=== PATIENT | male | born 1960 | race Caucasian/White ===

== ENCOUNTER 2020-09-06 13:37 | Outpatient (REF) | payer OTHER, SELFPAY ==
[2020-09-06 14:37] LABS: MANUAL DIFF FLAG NO
[2020-09-06 14:43] LABS: Basophils Percent Auto 0.5 % (0-2); Eosinophils Absolute Auto 0.2 X10*3/uL (0.0-0.4); Eosinophils Percent Auto 2.6 % (0-4); Hematocrit 45.5 % (42-52); Hemoglobin 15.3 g/dl (14.0-18.0); Imm Gran Abs Auto 0.02 X10*3/uL (0.00-0.03); Imm Gran Pct Auto 0.3 % (0.0-0.4); Lymphocytes Absolute Auto 2.7 X10*3/uL (1.2-4.9); Lymphocytes Percent Auto 34.5 % (20-40); Mean Corpuscular HGB Conc 33.6 g/dl (31.0-36.0); Mean Corpuscular Hemoglobin 30.1 pg (27.0-33.0); Mean Corpuscular Volume 89.6 fL (80-98); Mean Platelet Volume 10.3 fL (9.4-12.4); Monocytes Percent Auto 11.9 % (2-11); Neutrophils Percent Auto 50.2 % (45-73); Platelet Count 220 X10*3/uL (160-400); Red Blood Count 5.08 X10*6/uL (4.60-5.80); Red Cell Distribution Width 12.2 % (11.0-16.0)
[2020-09-06 15:07] LABS: Anion Gap 12 (12-20); Blood Urea Nitrogen 16 mg/dL (9-16); Calcium 9.5 mg/dL (8.4-10.2); Carbon Dioxide 26 mmol/L (22-29); Chloride 107 mmol/L (96-108); Estimated Glomerular Filt Rate > 60; Glucose Fasting 128 mg/dL (60-99); Potassium 4.3 mmol/L (3.3-5.1); Sodium 141 mmol/L (135-145)
== END 2020-09-06 13:38 | disposition home or self-care (01) ==
LOC: HO.LAB 13:37
PROVIDERS: PCP Internal Medicine; Visit Provider Internal Medicine
DX: Z00.00 Encounter for general adult medical examination without abnormal findings (principal); K62.5 Hemorrhage of anus and rectum; R09.89 Other specified symptoms and signs involving the circulatory and respiratory systems; R07.2 Precordial pain; M79.661 Pain in right lower leg; M79.662 Pain in left lower leg
CPT/HCPCS: 80048; 85025; U0003; U0005

== ENCOUNTER → 2020-09-24 13:47 | Outpatient (BNVA) | payer OTHER, SELFPAY | PROVIDERS: PCP Internal Medicine; Referring Provider Internal Medicine; Visit Provider Surgery | DX: K64.4 Residual hemorrhoidal skin tags (principal); K64.8 Other hemorrhoids | CPT/HCPCS: 46600; 99202 ==

== ENCOUNTER 2021-01-28 11:18 | Outpatient (REF) | payer OTHER, SELFPAY | END 2021-01-28 11:19 | disposition home or self-care (01) | LOC: HO.LAB 11:18 | PROVIDERS: PCP Internal Medicine; Visit Provider Internal Medicine | DX: Z13.89 Encounter for screening for other disorder (principal) ==

== ENCOUNTER 2021-01-28 11:30 | Emergency (ER) | payer OTHER, SELFPAY ==
--- NOTE | 2021-01-28 | ECG_ITS ---
Test Reason : CHEST PAIN Blood Pressure : / mmHG Vent. Rate : 065 BPM Atrial Rate : 065 BPM P-R Int : 172 ms QRS Dur : 090 ms QT Int : 406 ms P-R-T Axes : 013 012 025 degrees QTc Int : 422 ms Normal sinus rhythm Normal ECG When compared with ECG of 22-AUG-2019 16:06, No significant change was found Referred By: Michael Travis Electronically Signed By:LIVIA DUNAWAY MD
[2021-01-28 11:33] VITALS: BP 140/74; PULSE 62; RESP 18; TEMP 36.6; O2SAT 99; BMI 31.5
--- NOTE | 2021-01-28 11:36 | ED_ITS ---
HPI - General Adult General Chief complaint: General Medical Stated complaint: Syncopal Episode Time Seen by Provider: 01/28/21 11:36 Source: patient Mode of arrival: ambulatory Limitations: no limitations History of Present Illness HPI narrative: chest pain and palpitations. Patient was at outpatient labs when he developed chest pain and palpitations. patient was here for outpatient CT and blood work. Patient states he gets pain with exertion. Patient had a stress test 2 years ago was not told he had any blockages. Onset (ago): minute(s) Radiation: non-radiation Severity: mild Pain Consistency: now resolved Exacerbating factors: none Associated symptoms: chest pain and other (palpitations) Related Data Previous Rx's Medication Instructions Recorded aspirin 81 mg tablet,delayed 81 mg PO DAILY #90 tab 01/20/20 release (Adult Low Dose Aspirin) ibuprofen 800 mg tablet 800 mg PO BID #60 tab 12/06/20 Allergies Allergy/AdvReac Type Severity Reaction Status Date / Time azithromycin Allergy Unknown rash Verified 01/18/21 11:37 ciprofloxacin [From CIPRO] Allergy Unknown BLISTERS Verified 01/18/21 11:37 penicillin G [PENICILLIN G] Allergy Unknown HIVES Verified 01/18/21 11:37 penicillin V Allergy Unknown anaphylaxis Verified 01/18/21 11:37 Review of Systems Constitutional: Constitutional: Reports no additional constitutional complaints Eyes: Eyes: Reports no additional eye complaints ENT: Denies dizziness Cardiovascular: Cardiovascular: Reports no additional cardiovascular complaints Respiratory: Respiratory: Reports as per HPI Gastrointestinal: Gastrointestinal: Reports no additional gastrointestinal complaints Musculoskeletal: Musculoskeletal: Reports no additional musculoskeletal complaints Integumentary/Breasts: Skin/Breast: Denies rash Neurologic: Reports system reviewed and no additional complaints, except as documented, Denies dizziness and Denies Sensory deficit (Neuro) Psychiatric: Psychiatric: Denies anxiety [facility] Past Medical History Medical History Chest pain Diverticulitis Internal and external bleeding hemorrhoids Pain in both lower legs TBI (traumatic brain injury) Surgical History No significant past surgical history Family History Family History Mother No problems noted. Father No problems noted. Brother No problems noted. Brother No problems noted. Brother No problems noted. Social History Social History Housing: Apartment Alcohol intake: current Alcohol intake frequency: a few times a week Patient Tobacco Use Status: Former Tobacco user Tobacco use type: Cigarette Second Hand Smoke Exposure: Yes Advance Directives: No Advance Directives Information Provided: No service: No Current occupational status: employed Physical Exam Vital Signs: Vital Signs: Last Vital Signs Temp 98 F 01/28/21 11:33 Pulse 62 01/28/21 11:33 Resp 18 01/28/21 11:33 BP 140/74 H 01/28/21 11:33 Pulse Ox 99 01/28/21 11:33 Body Mass Index 31.5 Const: General: healthy appearing Nutritional Appearance: average body habitus Orientation/consciousness: oriented to person and patient oriented x3 Limitations: no limitations HENMT: Head: Yes normal to inspection Ears: external ears normal General nose exam: Normal external nose present Mouth: Normal oral and palatal mucosa present and oropharynx normal Throat: Yes posterior oropharynx normal Eyes: General: appearance normal, both eyes and all related structures Neck: Other: supple Neck: Yes normal visual inspection Chest: Chest palpation & inspection: normal inspection of the chest Resp: Auscultation: clear to auscultation bilaterally Cardio: Jugular venous distension: no JVD Rate: regular rate Rhythm: regular rhythm Heart sounds: S1 normal heart sound present and S2 normal heart sound present GI: Inspection: Yes normal to inspection Palpation (GI): Soft to palpation, nontender and No hepatosplenomegaly present Auscultation: normal bowel sounds : General: Yes no CVA tenderness Back/Spine/Pelvis: Back: no CVA tenderness Skin: General skin exam: no rashes or lesions noted Neuro: General: oriented to person and patient oriented x3 Cranial nerves: Yes CN's II-XII intact bilaterally Motor exam (neuro): 5/5 motor strength present throughout Sensory Exam: No Sensory deficit (Neuro) Extrem: General: Yes normal to inspection Psych: Appearance: grossly normal Course Reevaluation(s) Reevaluation #1: EKG, troponin all negative, patients symptoms likely anxiety Time: 12:49 Medical Decision Making Lab Data Result diagrams: 01/28/21 11:47 01/28/21 11:47 Labs: Lab Results 1101/28/21 01/28/21 Range/Units 11:47 11:47 11:47 WBC 7.0 (4.8-10.8) X10*3/uL RBC 5.04 (4.60-5.80) X10*6/uL Hgb 15.1 (14.0-18.0) g/dl Hct 44.5 (42.0-52.0) % MCV 88.3 (80.0-98.0) fL MCH 30.0 (27.0-33.0) pg MCHC 33.9 (31.0-36.0) g/dl RDW 12.4 (11.0-16.0) % Plt Count 203 (160-400) X10*3/uL MPV 10.0 (9.4-12.4) fL Immature Gran % (Auto) 0.3 (0.0-0.4) % Neut % (Auto) 55.3 (45-73) % Lymph % (Auto) 30.2 (20-40) % [place] % (Auto) 11.1 H (2-11) % Eos % (Auto) 2.7 (0-4) % Baso % (Auto) 0.4 (0-2) % Lymph # (Auto) 2.1 (1.2-4.9) X10*3/uL [place] # (Auto) 0.8 (0.1-1.2) X10*3/uL Eos # (Auto) 0.2 (0.0-0.4) X10*3/uL Baso # (Auto) 0.0 (0.0-0.2) X10*3/uL Abs Immat Gran (auto) 0.02 (0.00-0.03) X10*3/uL Absolute Neuts (auto) 3.8 (2.0-8.3) x10*3/uL Absolute Nucleated RBC 0.000 (0.0-0.012) X10*3/uL Nucleated RBC % (auto) 0.0 (0.0-0.2) /100WBC Sodium 139 (135-145) mmol/L Potassium 4.1 (3.3-5.1) mmol/L Chloride 105 (96-108) mmol/L Carbon Dioxide 27 (22-29) mmol/L Anion Gap 11 L (12-20) BUN 16 (9-16) mg/dL Creatinine 0.89 (0.5-1.4) mg/dL Estim Creat Clear Calc 105.8 Estimated GFR > 60 Random Glucose 129 H (60-115) mg/dL Calcium 9.4 (8.4-10.2) mg/dL Total Bilirubin 0.5 (0.0-1.0) mg/dL Direct Bilirubin 0.2 (0.0-0.5) mg/dL AST 18 (5-37) U/L ALT 21 (0-40) U/L Alkaline Phosphatase 53 (39-117) U/L Troponin I High Sens < 3.5 (<3.5-35.0) ng/L Total Protein 6.4 L (6.5-8.0) g/dL Albumin 4.3 (3.5-5.0) g/dL Lipase 36 (8-78) U/L Discharge Plan Discharge Clinical Impression: Heart palpitations Patient Disposition: Home, Self-Care Instructions: Heart Palpitations (ED) Additional Instructions: patient may go for his outpatient studies Prescriptions: No Action aspirin [Adult Low Dose Aspirin] 81 mg tablet,delayed release (DR/EC) 81 mg PO DAILY Qty: 90 RF: 8 ibuprofen 800 mg tablet 800 mg PO BID Qty: 60 RF: 3 Referrals: Juan Copeland MD [Primary Care Provider] - 1 week
[2021-01-28 11:52] LABS: MANUAL DIFF FLAG NO
[2021-01-28 11:59] LABS: Basophils Percent Auto 0.4 % (0-2); Eosinophils Absolute Auto 0.2 X10*3/uL (0.0-0.4); Eosinophils Percent Auto 2.7 % (0-4); Hematocrit 44.5 % (42.0-52.0); Hemoglobin 15.1 g/dl (14.0-18.0); Imm Gran Abs Auto 0.02 X10*3/uL (0.00-0.03); Imm Gran Pct Auto 0.3 % (0.0-0.4); Lymphocytes Absolute Auto 2.1 X10*3/uL (1.2-4.9); Lymphocytes Percent Auto 30.2 % (20-40); Mean Corpuscular HGB Conc 33.9 g/dl (31.0-36.0); Mean Corpuscular Volume 88.3 fL (80.0-98.0); Monocytes Absolute Auto 0.8 X10*3/uL (0.1-1.2); Monocytes Percent Auto 11.1 % (2-11); Neutrophils Absolute Auto 3.8 x10*3/uL (2.0-8.3); Neutrophils Percent Auto 55.3 % (45-73); Platelet Count 203 X10*3/uL (160-400); Red Blood Count 5.04 X10*6/uL (4.60-5.80); Red Cell Distribution Width 12.4 % (11.0-16.0)
[2021-01-28 12:12] LABS: Alanine Aminotransferase 21 U/L (0-40); Albumin Level 4.3 g/dL (3.5-5.0); Alkaline Phosphatase 53 U/L (39-117); Anion Gap 11 (12-20); Aspartate Amino Transferase 18 U/L (5-37); Bilirubin Direct 0.2 mg/dL (0.0-0.5); Bilirubin Total 0.5 mg/dL (0.0-1.0); Blood Urea Nitrogen 16 mg/dL (9-16); Calcium 9.4 mg/dL (8.4-10.2); Carbon Dioxide 27 mmol/L (22-29); Chloride 105 mmol/L (96-108); Creatinine Clr Calc Pharmacy 105.8; Estimated Glomerular Filt Rate > 60; Glucose Random 129 mg/dL (60-115); Lipase 36 U/L (8-78); Potassium 4.1 mmol/L (3.3-5.1); Sodium 139 mmol/L (135-145); Total Protein 6.4 g/dL (6.5-8.0)
[2021-01-28 12:17] LABS: Troponin-I High Sensitivity < 3.5 ng/L (<3.5-35.0)
== END 2021-01-28 13:31 | disposition home or self-care (01) ==
PROVIDERS: Emergency Provider Emergency Medicine; PCP Internal Medicine
DX: R00.2 Palpitations (principal)
CPT/HCPCS: 36415; 80048; 80076; 83690; 84484; 85025; 93005; 99283

== ENCOUNTER 2021-02-18 08:59 | Outpatient (REF) | payer OTHER, SELFPAY ==
--- NOTE | ~2021-02-18 | CT_ITS ---
EXAMINATION: CT ABDOMEN AND PELVIS WITH CONTRAST CLINICAL INFORMATION: Abdominal pain COMPARISON: Abdominal ultrasound and MRI from 2015 TECHNIQUE: Multidetector volumetric images were obtained from the superior aspect of the liver through the pubic symphysis following administration 85 mL of Omnipaque 350 intravenous contrast. Sagittal and coronal reformatted images were obtained on the technologist's workstation. Oral contrast: Yes This CT examination was performed using dose optimization techniques as appropriate, variously including the following: *Automated exposure control *Adjustment of mA and/or kV according to patient size (this includes techniques or standardized protocols for targeted exams where dose is matched to indication/reason for exam; i.e. extremities or head) *Use of iterative reconstruction technique DLP: 498 mGy-cm FINDINGS: LUNG BASES: The visualized lung bases are unremarkable. LIVER, GALLBLADDER, AND BILIARY TREE: The liver is normal in size, shape, and attenuation. There is a 3 cm cyst in the right lobe of the liver that is stable. No other focal hepatic lesion or biliary ductal dilatation is present. The gallbladder is unremarkable with no evidence of radiopaque gallstones, gallbladder wall thickening, or obvious pericholecystic inflammatory changes. PANCREAS: Unremarkable. SPLEEN: Upper normal in size measuring 13 cm. ADRENAL GLANDS: Unremarkable. KIDNEYS AND URETERS: The kidneys are normal in size, shape, and attenuation. No hydronephrosis, hydroureter, or calculi seen. No perinephric stranding. BLADDER: Unremarkable. GASTROINTESTINAL TRACT: There is diverticulosis of the colon. No evidence of diverticulitis is seen. The small and large bowel are otherwise unremarkable. The appendix is unremarkable. ABDOMINAL WALL: There or umbilical and right inguinal hernias containing fat. LYMPH NODES: Normal. VASCULAR: Unremarkable. PELVIC VISCERA: Unremarkable. OSSEOUS STRUCTURES: Unremarkable. CT/CT abdomen pelvis w con IMPRESSION: Stable liver cysts. Diverticulosis of the colon. No evidence of diverticulitis. Umbilical and right inguinal hernias containing fat. Fleischner guidelines were followed.
[2021-02-18] MEDS: iohexoL 350 MG/ML 100 ML INFUS..BTL 85 ML IV (11:31)
== END 2021-02-18 09:00 | disposition home or self-care (01) ==
LOC: HO.CT 08:59
PROVIDERS: Visit Provider Internal Medicine
DX: R10.9 Unspecified abdominal pain (principal)
CPT/HCPCS: 74177; Q9967

== ENCOUNTER → 2021-03-14 15:02 | Outpatient (BNVA) | payer OTHER, SELFPAY | PROVIDERS: PCP Internal Medicine; Referring Provider Internal Medicine; Visit Provider Internal Medicine Cardiovascular Disease | DX: R00.2 Palpitations (principal) | CPT/HCPCS: 99202 ==

== ENCOUNTER → 2021-04-30 12:32 | Outpatient (REF) | payer OTHER, SELFPAY ==
--- NOTE | 2021-04-30 12:38 | CA_ITS ---
Transthoracic Echocardiogram Patient (Last, First, Middle): Shayne Killian, Gender: Male Date of : 1960 Age: 60 Procedure Date: 04/30/2021 Procedure Type: Transthoracic Echocardiogram Location: OP Height: 177.8 cm Weight: 104.33 kg BSA: 2.22 m2 Heart Rate: bpm BP: 125 / 76 mmHg Rehabilitation Manager: SHAYNE Referring MD: Temo Cardona MD Design Printer Balloon: Temo Cardona MD Symptoms: R00.2 - Palpitations Study Quality: Fair ECG Rhythm: Sinus Conclusions: - Normal left ventricular size, thickness, systolic function, and wall motion. The visually estimated ejection fraction is between 55-60%. Diastolic function is normal for age. - Normal right ventricular cavity size and systolic function. - There is mild dilatation of the ascending aorta measuring 4.10 cm. Findings Left Ventricle Normal left ventricular size, thickness, systolic function, and wall motion. The visually estimated ejection fraction is between 55-60%. Diastolic function is normal for age. Right Ventricle Normal right ventricular cavity size and systolic function. Atria Both atria are normal in size. Aortic Valve Normal aortic valve structure and function. There is no aortic valve stenosis. There is no aortic valve regurgitation. Mitral Valve Normal mitral valve structure and function. There is no mitral valve regurgitation. There is no mitral valve stenosis. Pulmonic Valve Normal pulmonic valve structure and function. There is trace pulmonic valve regurgitation. Tricuspid Valve Normal tricuspid valve structure and function. There is no tricuspid valve regurgitation. Tricuspid regurgitation envelope is inadequate for calculation of right ventricular systolic pressure. Normal right atrial pressure. Great Vessels There is mild dilatation of the ascending aorta measuring 4.10 cm. The visualized portions of the pulmonary artery and branches are normal. Venous The inferior vena cava is normal in size and collapses greater than 50% with inspiration. Pericardium/Pleural Normal pericardial structure. There is no evidence of pericardial effusion. Prior Study Comparison No significant change compared to prior study dated: 09/29/2019. Measurements 2D Linear Measurements IVSd: 0.94 0.6-0.9/0.6-1.0 cm LVIDd: 4.64 3.9-5.3/4.2-5.9 cm LVIDd Index: 2.09 2.4-3.2/2.2-3.1 cm/m2 LVIDs: 3.22 2.0-3.6 cm LVPWd: 0.93 0.7-1.1 cm Ao Root: 4.00 2.1-3.5 cm LA Diam: 3.60 2.7-3.8/3.0-4.0 cm LAIDs Index: 1.62 1.5-2.3 cm/m2 LV Mass: 182.77 67-162/88-224 g LV Mass Index: 82.33 43-95/49-115 g/m2 LVOT Diam: 2.70 3.0+(-)1.3 cm 2D Systolic Function EF 4C: 59.60 >55% EF 2C: 57.00 >55% EF BiP: 58.30 >55% Mitral Valve MV Pk E: 0.56 MV PK A: 0.50 MV Decel Time: 321.00 E/A: 1.10 E'Lateral: 13.80 E'Medial: 5.11 E/E' Med: 10.90 E/E' Lat: 4.00 PHT: 94.00 MVA PHT: 2.34 Decel [place]: 1.74 Aortic Valve AoV Pk Jad: 1.19 AoV Mn Jad: 0.86 AoV VTI: 0.22 AoV Pk Grad: 6.00 Aov Mn Grad: 3.00 JOSUE Cont.VTI: 4.21 LVOT LVOT Pk Jad: 0.83 LVOT Mn Jad: 0.53 LVOT VTI: 0.16 LVOT Pk Grad: 3.00 LVOT Mn Grad: 1.00 LVOT Diam: 2.70 LVOT Area: 5.73 Diastolic Function MV Pk E: 0.56 MV Pk A: 0.50 E/A: 1.10 E'Medial: 5.11 E/E' Med: 10.90 E' Laterial: 13.80 E/E' Lat: 4.00 Tricuspid Valve TR Pk Jad: 0.96 TR Pk Grad: 4.00 Great Vessels Aorta Ao Root-2D: 4.00 2.0-3.7 cm Ao Asc: 4.10 2.1-3.4 cm Pulmonary Valve PV Pk Jad: 0.86 Peak PV Grad: 3.00 Updated in Other Vendor System with Status of Final Temo Cardona MD electronically signed on 05/02/2021 11:56:33 AM with status of Final
--- NOTE | 2021-04-30 12:38 | HM_ITS ---
Conclusion: 1. Patient was monitored for total of 14 days and 1 hour 2. Baseline rhythm was normal sinus rhythm with average heart of 66 beats per minute 3. No significant pauses or bradycardia noted 4. Four episodes of nonsustained ventricular tachycardia noted longest at 5 beats 5. Twenty total episodes of supra ventricle tachycardia noted with longest episode of 21 beats with the fastest episode of 176 beats per minute 6. Total of 1244 PACs accounting for 0.09% of total beats accounting for rare PACs 7. No patient reported events MTDD
== END ==
LOC: HO.CARD 12:32
PROVIDERS: PCP Internal Medicine; Visit Provider Internal Medicine Cardiovascular Disease
DX: R00.2 Palpitations (principal)
CPT/HCPCS: 93246; 93306

== ENCOUNTER → 2021-06-11 14:48 | Outpatient (BNVA) | payer OTHER, SELFPAY | PROVIDERS: PCP Internal Medicine; Referring Provider Internal Medicine; Visit Provider Nurse Practitioner Family | DX: R00.2 Palpitations (principal); I47.2 Ventricular tachycardia; I47.1 Supraventricular tachycardia; R07.2 Precordial pain | CPT/HCPCS: 99212 ==

== ENCOUNTER → 2021-07-11 09:54 | Outpatient (REF) | payer OTHER, SELFPAY ==
--- NOTE | ~2021-07-11 | NM_ITS ---
Lexiscan Myocardial perfusion study Indication: Chest pain, assess for coronary disease and ischemia Technique: The patient was brought in for a Lexiscan perfusion study on 07/11/2021 and was injected 0.4 mg of Lexiscan intravenously. Within a minute of this injection 30 mCi of sestamibi was given intravenously. Images were obtained using the SPECT gamma camera interlaced with the gating device. Images were obtained in supine position. Resting perfusion study was performed on 07/22/2021. Patient was administered 30 mCi of sestamibi intravenously at rest. Images were then obtained in supine position. Total DLP 105mGy-cm. Images were processed with the software and compared side to side in short axis, horizontal long axis and vertical long axis views. Findings: Raw acquisition The stress perfusion study showed diminished tracer uptake along the inferior wall. With CT attenuation correction, there is improvement and hence suggestive of diaphragmatic attenuation artifact. The gated study shows normal LV systolic function with calculated LVEF of 66%. LV cavity is normal in size. The gated study shows normal wall thickening and contraction of segments. Resting study shows diminished tracer uptake along the inferior wall from the basal to mid portions and improving with CT attenuation correction. Gating at rest reveals normal wall motion with ejection fraction at 65%. The findings are consistent with reversible perfusion defect along the inferior wall but improving with CT attenuation correction and hence likely diaphragmatic attenuation artifact. NM/NM cardiolite stress test Impression: 1. Myocardial perfusion imaging study shows no definitive evidence of any ischemia or infarction. Likely normal perfusion. 2. Gated LVEF is 66% during stress and 65% during rest. 3. Transient ischemic dilatation not present. EKG component of the test reported separately.
--- NOTE | 2021-07-11 09:58 | CA_ITS ---
Acquisition Time: 2021-07-11 10:09:47 Total Exercise Time: 00:06:29 Test Indications: cp, svt, nsvt Medications: see chart Protocol: STEVE Max HR: 127 BPM 78% of Pred: 161 BPM Max BP: 146/080 mmHG Max Work Load: 7.7 METS Exercise stress test with exercise 6 min 29 sec of Steve protocol, achieving 64% MPHR with request to stop due to leg fatigue, with report of sharp 1/10 left chest discomfort in stage 2 which resolved prior to start of stage 3, with normotensive response to exercise, with nondiagnostic EKG for ischemia. Treadmill placed in recovery and slowed to 1 MPH for additional 3 min. Testing changed to pharmacological stress test with Lexiscan injection, with report of lightheadedness, without anginal symptoms, with accelerated junctional rhythm post Lexiscan injection for less than 1 min, with normotensive response to injection, with nondiagnostic EKG for ischemia. In recovery, he was treated with Aminophylline 75mg IVP to reverse Lexiscan. Nuclear images pending. Test reviewed with Dr Grossman. Referred By: Haley Mendoza Overread By: HALEY MENDOZA
== END ==
LOC: HO.CARD 09:54
PROVIDERS: PCP Internal Medicine; Visit Provider Nurse Practitioner Family
DX: R07.9 Chest pain, unspecified (principal); I47.1 Supraventricular tachycardia; I47.2 Ventricular tachycardia
CPT/HCPCS: 78452; 93017; A9500; J0280; J2785

== ENCOUNTER → 2021-11-06 13:52 | Outpatient (BNVA) | payer OTHER, SELFPAY | PROVIDERS: PCP Internal Medicine; Referring Provider Internal Medicine; Visit Provider Internal Medicine Cardiovascular Disease | DX: R07.2 Precordial pain (principal); R00.2 Palpitations | CPT/HCPCS: 99212 ==

== ENCOUNTER 2022-03-06 14:01 | Outpatient (REF) | payer OTHER, SELFPAY ==
--- NOTE | ~2022-03-06 | US_ITS ---
EXAMINATION: US EXTRACRANIAL CAROTID DUPLEX, BILATERAL CLINICAL INFORMATION: Transient ischemic attack COMPARISON: None TECHNIQUE: Real-time ultrasound and Doppler techniques (integrating B-mode 2-D vascular images, Doppler spectral analysis and color-flow Doppler imaging) were utilized to interrogate the extracranial carotid arteries, the vertebral arteries and proximal subclavian arteries bilaterally. The degree of stenosis is determined by criteria similar to NASCET. FINDINGS: Right Side: 1. There is minimal noncalcified atherosclerotic plaque seen in the bifurcation/proximal ICA region. 2. The common carotid artery PSV proximally is 98.2 cm/s and distally 75.8 cm/s. 3. The proximal internal carotid artery velocities are 58 cm/s systolic and 24.6 cm/s diastolic. 4. The proximal external carotid artery PSV is 131 cm/s. 5. The vertebral artery shows antegrade flow. 6. The subclavian artery waveforms are normal. Left Side: 1. There is mild noncalcified atherosclerotic plaque seen in the bifurcation/proximal ICA region. 2. The common carotid artery PSV proximally is 104 cm/s and distally 80.2 cm/s. 3. The proximal internal carotid artery velocities are 82.6 cm/s systolic and 32.9 cm/s diastolic. 4. The proximal external carotid artery PSV is 113 cm/s. 5. The vertebral artery shows antegrade flow. 6. The subclavian artery waveforms are normal. US/US carotid duplex BI IMPRESSION: 1. RIGHT: Minimal, non-hemodynamically significant stenosis of the proximal right internal carotid artery corresponding to a 0-49% stenosis by velocity criteria. 2. LEFT: Minimal, non-hemodynamically significant stenosis of the proximal left internal carotid artery corresponding to a 0-49% stenosis by velocity criteria.
== END 2022-03-06 14:02 | disposition home or self-care (01) ==
LOC: HO.US 14:01
PROVIDERS: Visit Provider Internal Medicine
DX: G45.9 Transient cerebral ischemic attack, unspecified (principal)
CPT/HCPCS: 93880

== ENCOUNTER 2022-04-29 14:39 | Outpatient (REF) | payer OTHER, SELFPAY ==
--- NOTE | ~2022-04-29 | CT_ITS ---
EXAMINATION: CT HEAD WITHOUT CONTRAST CLINICAL INFORMATION: Tremor. COMPARISON: None TECHNIQUE: Contiguous axial imaging was performed from the skull base to vertex without intravenous administration of contrast. This CT examination was performed using dose optimization techniques as appropriate, variously including the following: *Automated exposure control *Adjustment of mA and/or kV according to patient size (this includes techniques or standardized protocols for targeted exams where dose is matched to indication/reason for exam; i.e. extremities or head) *Use of iterative reconstruction technique DLP: 1050 mGy-cm FINDINGS: No intracranial hemorrhage. No mass effect or midline structure shift. No abnormal extra-axial fluid collection. Estrada-white matter interface is maintained. The ventricles, sulci, and cisterns appear unremarkable. There is prominence of the right inferior turbinate with debris present in the right nasal cavity. There is mucosal thickening seen within the lacrimal ducts. The visualized paranasal sinuses and mastoid air cells are unremarkable. There is a filling defect in the left transverse sinus likely representing arachnoid granulation. This is round and does not have the appearance of thrombus. CT/CT head/brain wo IV con IMPRESSION: No acute intracranial pathology.
== END 2022-04-29 14:40 | disposition home or self-care (01) ==
LOC: HO.CT 14:39
PROVIDERS: PCP Internal Medicine; Visit Provider Internal Medicine
DX: R25.1 Tremor, unspecified (principal)
CPT/HCPCS: 70450

== ENCOUNTER 2022-05-22 11:19 | Outpatient (REF) | payer OTHER, SELFPAY ==
[2022-05-22 11:41] LABS: MANUAL DIFF FLAG NO
[2022-05-22 12:16] LABS: Basophils Absolute Auto 0.1 X10*3/uL (0.0-0.2); Basophils Percent Auto 0.7 % (0-2); Eosinophils Absolute Auto 0.2 X10*3/uL (0.0-0.4); Eosinophils Percent Auto 2.3 % (0-4); Hematocrit 46.7 % (42.0-52.0); Imm Gran Abs Auto 0.02 X10*3/uL (0.00-0.03); Imm Gran Pct Auto 0.2 % (0.0-0.4); Lymphocytes Absolute Auto 2.3 X10*3/uL (1.2-4.9); Lymphocytes Percent Auto 27.5 % (20-40); Mean Corpuscular HGB Conc 34.3 g/dl (31.0-36.0); Mean Corpuscular Hemoglobin 30.2 pg (27.0-33.0); Mean Corpuscular Volume 88.1 fL (80.0-98.0); Mean Platelet Volume 10.1 fL (9.4-12.4); Monocytes Absolute Auto 0.9 X10*3/uL (0.1-1.2); Monocytes Percent Auto 10.8 % (2-11); Neutrophils Absolute Auto 4.8 x10*3/uL (2.0-8.3); Neutrophils Percent Auto 58.5 % (45-73); Platelet Count 232 X10*3/uL (160-400); Red Cell Distribution Width 12.4 % (11.0-16.0); White Blood Count 8.3 X10*3/uL (4.8-10.8)
[2022-05-22 12:59] LABS: Erythrocyte Sedimentation Rate 4 MM/HR (0-15)
[2022-05-22 15:18] LABS: Alanine Aminotransferase 19 U/L (0-40); Albumin Level 4.7 g/dL (3.5-5.0); Alkaline Phosphatase 63 U/L (39-117); Aspartate Amino Transferase 17 U/L (5-37); Bilirubin Direct < 0.2 mg/dL (0.0-0.5); Bilirubin Total 0.5 mg/dL (0.0-1.0); C Reactive Protein 0.12 mg/dL (< or = 0.50); Total Protein 6.7 g/dL (6.5-8.0)
[2022-05-27 16:48] LABS: Endomysial IgA Antibody Negative (Negative)
[2022-05-28 14:24] LABS: Immunoglobulin A 181 mg/dL (47-310)
[2022-05-29 13:28] LABS: Transglutaminase Ab IgG <1.0 U/mL; Transglutaminase IgA <1.0 U/mL
[2022-05-29 13:33] LABS: Gliadin Deamidated IgA Ab <1.0 U/mL; Gliadin Deamidated IgG Ab <1.0 U/mL
== END 2022-05-22 11:20 | disposition home or self-care (01) ==
LOC: HO.LAB 11:19
PROVIDERS: PCP Internal Medicine; Visit Provider Internal Medicine
DX: R00.2 Palpitations (principal); R07.2 Precordial pain; K62.5 Hemorrhage of anus and rectum; R19.7 Diarrhea, unspecified; F17.210 Nicotine dependence, cigarettes, uncomplicated; Z79.899 Other long term (current) drug therapy
CPT/HCPCS: 36415; 80076; 82784; 85025; 85652; 86140; 86231; 86258; 86364; 93005; 99212

== ENCOUNTER 2022-07-25 09:38 | Day surgery (SDC) | payer OTHER, SELFPAY ==
--- NOTE | 2022-07-24 14:09 | P.CONAN_ITS ---
Documented by User: Elena Martinez NP 07/24/22 14:18 HPI - Anesthesia Eval Consult details Narrative: 61yo M for Colonoscopy Stable at 05/2022 cardiac office visit [facility] Active Problems Active Problems: All Active Problems (Updated 07/24/22 @ 14:03 by Michelle Painting RN) Hospital discharge follow-up (Acute) Rectal Hemorrhage (Acute) Rectal Hemorrhage (Acute) Rectal bleeding (Acute) Arm pain (Acute) Obesity (Acute) Otitis media (Acute) Abdominal pain (Acute) Intermittent palpitations (Acute) Otitis externa (Acute) NSVT (nonsustained ventricular tachycardia) (Acute) SVT (supraventricular tachycardia) (Acute) Diarrhea (Acute) Otitis media (Acute) Physical exam (Acute) Tremors of nervous system (Acute) Internal and external bleeding hemorrhoids (Acute) Diverticulitis (Acute) Pain in both lower legs (Acute) Chest pain (Acute) Past Medical History Medical History (Updated 07/24/22 @ 14:03 by Michelel Painting RN) Anxiety Chest pain Depression Diverticulitis Internal and external bleeding hemorrhoids Pain in both lower legs PTSD (post-traumatic stress disorder) TBI (traumatic brain injury) Family History Family History Mother No problems noted. Father No problems noted. Brother No problems noted. Brother No problems noted. Brother No problems noted. Surgical History Surgical History (Updated 07/24/22 @ 14:03 by Michelle Painting RN) H/O colonoscopy No significant past surgical history Social History Social History Housing: Apartment Alcohol intake: current Alcohol intake frequency: holidays/special occasions only Patient Tobacco Use Status: Former Tobacco user Quit Date: 1978 Tobacco use type: Cigarette Years Smoked: 5 +/- e-Cigarette/Vaping Use: Never Used Second Hand Smoke Exposure: Yes Use of substances other than those prescribed or required for medical reasons: No Are you DNR?: No Advance Directives: No Advance Directives Information Provided: Yes service: No Current occupational status: employed Current occupational exposures/hazards: No Cognitive needs: No Hearing needs: No Vision needs: Yes Meds Allergies Allergy/AdvReac Type Severity Reaction Status Date / Time azithromycin Allergy Unknown rash Verified 05/22/22 15:25 ciprofloxacin [From CIPRO] Allergy Unknown BLISTERS Verified 05/22/22 15:25 penicillin G [PENICILLIN G] Allergy Unknown HIVES Verified 05/22/22 15:25 penicillin V Allergy Unknown anaphylaxis Verified 05/22/22 15:25 Home Medications Medication Instructions Recorded Confirmed Last Taken Type clindamycin HCl 300 mg capsule 300 mg PO TID 07/24/22 07/24/22 Unknown History metformin 500 mg PO DAILY 07/24/22 07/24/22 Unknown History Exam Exam Date and Time: July 24, 2022 1409 Narrative Narrative: EKG 05/2022 Sinus rhythm 66 beats per minute, normal axis, nonspecific ST changes, QTC 430 milliseconds. Per 05/2022 cardiology office visit He underwent echocardiography which showed normal LVEF without any wall motion abnormalities.? He had exercise stress test where he was able to exercise for 6 minutes 29 se conds achieving 7.7 metabolic equivalents.? He was changed to Lexiscan for some reason which did not show any definitive perfusion defect. He was referred for coronary CTA which showed mild plaque in the LAD and circumflex artery.? Airway Adult Head Mouth w/Numbe Teeth: 1. 2. Assessment and Plan Assessment Anesthesia Assessment: Chart Reviewed Documented by User: Effie Gauthier MD 07/25/22 10:53 [facility] Past Medical History Medical History (Updated 07/24/22 @ 14:03 by Michelle Painting RN) Anxiety Chest pain Depression Diverticulitis Internal and external bleeding hemorrhoids Pain in both lower legs PTSD (post-traumatic stress disorder) TBI (traumatic brain injury) Family History Family History Mother No problems noted. Father No problems noted. Brother No problems noted. Brother No problems noted. Brother No problems noted. Family history of problems with anesthesia: No Surgical History Surgical History (Updated 07/24/22 @ 14:03 by Michelle Painting RN) H/O colonoscopy No significant past surgical history History of Problems with Anesthesia: No Social History Social History Housing: Apartment Alcohol intake: current Alcohol intake frequency: holidays/special occasions only Patient Tobacco Use Status: Former Tobacco user Quit Date: 1978 Tobacco use type: Cigarette Years Smoked: 5 +/- e-Cigarette/Vaping Use: Never Used Second Hand Smoke Exposure: Yes Use of substances other than those prescribed or required for medical reasons: No Are you DNR?: No Advance Directives: No Advance Directives Information Provided: Yes service: No Current occupational status: employed Current occupational exposures/hazards: No Cognitive needs: No Hearing needs: No Vision needs: Yes Meds Allergies Allergy/AdvReac Type Severity Reaction Status Date / Time azithromycin Allergy Unknown rash Verified 05/22/22 15:25 ciprofloxacin [From CIPRO] Allergy Unknown BLISTERS Verified 05/22/22 15:25 penicillin G [PENICILLIN G] Allergy Unknown HIVES Verified 05/22/22 15:25 penicillin V Allergy Unknown anaphylaxis Verified 05/22/22 15:25 Home Medications Medication Instructions Recorded Confirmed Last Taken Type clindamycin HCl 300 mg capsule 300 mg PO TID 07/24/22 07/24/22 Unknown History metformin 500 mg PO DAILY 07/24/22 07/24/22 Unknown History Exam Airway Mallampati Class: I TM Dist: >3cm Neck ROM: Full Adult Head Mouth w/Numbe Teeth: 1. 2. Loose/Missing/Broken Teeth: Yes (2 brokenbut. tight) Heart: rr Lungs: cta Assessment and Plan Final Anesthetic Review Family History of Problems with Anesthesia: No History of Problems with Anesthesia: No NPO: Yes ASA Class: II Final Preanesthetic Review: No Changes in Pt Med Stat, Meds/Allgs Chart Reviewed, Consent Obtained/Reviewed and Anes Risks/Benef Reviewed Patient Risk: Low Procedure Risk: Low Anesthetic Plan Anesthetic Plan: MAC: Disposition: Standard PACU
--- OUTSIDE RECORDS SUMMARY | 2022-07-25 09:40 | XMS_ITS | Continuity of Care Document ---
Author Name Unknown Organization [facility] ter Address [address] [place] [id number]- Care Team Providers Care Cutter Gas Name Role Phone Sequeira Tiffany HENRY Primary Care Physician [place] [facility] [place] 04/09/22 - 04/10/[address] [address]- Discharge Disposition: A-D/C Walkout Attending Physician: Not on Staff, Attending MD Admitting Physician: Not on Staff, Admitting MD Referring Physician: Not on Staff, Referring MD Allergies, Adverse Reactions, Alerts Substance Reaction Severity Status amoxicillin Active Medications aspirin 81 mg oral delayed release tablet 81 mg, 1, tablet, By Mouth, Daily, Refills 0, Maintenance, 12/04/21 6:43:00 EDT, Partial fill upon patient request if the prescription is for a schedule II opioid drug. Start Date: 12/04/21 Status: Ordered atorvastatin 40 mg oral tablet 1 tablet = 40 mg, By Mouth, Daily, 0 Refills, Maintenance, 12/04/21 6:44:00 EDT, Partial fill upon patient request if the prescription is for a schedule II opioid drug. Start Date: 12/04/21 Status: Ordered Ibuprofen Refills 0, Maintenance, 12/04/21 6:43:00 EDT, Partial fill upon patient request if the prescriptionis for a schedule II opioid drug. Start Date: 12/04/21 Status: Ordered Multivitamin Daily, 0 Refills, Maintenance, 12/04/21 6:44:00 EDT, Partial fill upon patient request if the prescription is for a schedule II opioid drug. Start Date: 12/04/21 Status: Ordered Tylenol 325 mg oral tablet 650 mg, 2, tablet, By Mouth, Every 6 hours, Refills 0, Maintenance, 12/04/21 6:43:00 EDT, Partial fill upon patient request if the prescription is for a schedule II opioid drug. Start Date: 12/04/21 Status: Ordered Results Radiology Reports * Exam Date Time Procedure Performing Provider Status 04/09/22 7:16 PM Chest 2 Views Frontal and Lat Shayy mila Yvonne; Auth (Verified) Notes: (Chest 2 Views Frontal and Lat) Reason For Exam: Chest Pain;Other: RESULT: Chest 2 Views Frontal and Lat Chest 2 Views Frontal and Lat Hx of Present Illness: cleaning at house, felt dizzy then my legs started shaking, my whole body was shaking, my head was bobbing up down , awake alert during event, states this has happened before since TBI, also felt left eye numbness, lasted 30 min at 1500, took 81mg ASA; Reason: Other:; Chest Pain; Clinical Question(s): Other: COMPARISON: None. FINDINGS: LINES AND TUBES: None. LUNGS AND PLEURA: Clear lungs. Normal pulmonary vascularity. No pleural effusion. No pneumothorax. HEART, MEDIASTINUM AND VICENTE: Heart is normal in size. Normal mediastinal and hilar contour. BONES AND SOFT TISSUES: No acute abnormality. IMPRESSION: No acute abnormality. WSN: [id number] Ordering Physician: Shelley Calle Dictated By: Kal Humphrey MD Dictated Date/Time: 04/09/22 7:19 pm Reviewed By: Kal Humphrey MD Signed By: Kal Humphrey MD Signed Date/Time: 04/09/22 7:19 pm Transcribed By: JORDAN Transcribed Date/Time: 04/09/22 7:19 pm Vital Signs Most recent to oldest [Reference Range]: 1 2 3 Oxygen Saturation [94-100 %] 99 % (04/10/22 6:07 AM) 98 % (04/10/22 3:46 AM) 97 % (04/10/22 1:33 AM) Pulse Rate [55-90 bpm] 63 bpm (04/10/22 6:07 AM) 66 bpm (04/10/22 3:46 AM) 65 bpm (04/10/22 1:33 AM) Blood Pressure [90-138/55-84 mm Hg] 131/74mm Hg (04/10/22 6:07 AM) 126/69mm Hg (04/10/22 3:46 AM) 112/56mm Hg (04/10/22 1:33 AM) Respiratory Rate [16-30 br/min] 18 br/min (04/09/22 6:22 PM) Temperature [96.8-100.4 DegF] 98.5 DegF (04/10/22 6:07 AM) 98.6 DegF (04/10/22 3:46 AM) 98.3 DegF (04/10/22 1:33 AM) Mode of Delivery (Oxygen) Room air (04/10/22 6:07 AM) Room air (04/10/22 3:46 AM) Room air (04/10/22 1:33 AM) Blood pressure sites Arm, left (04/10/22 6:07 AM) Arm, left (04/10/22 3:46 AM) Arm, left (04/10/22 1:33 AM) Temperature Route Oral (04/10/22 6:07 AM) Oral (04/10/22 3:46 AM) Oral (04/10/22 1:33 AM) Social History Social History Type Response Sex Male EKG study * Event Display: ECG 12-Lead Authored Date: Please click on pdf link to open report * Event Display: ECG 12-Lead Authored Date: Ventricular Rate: 63 BPM Atrial Rate: 63 BPM P-R Interval: 188 ms QRS Duration: 94 ms Q-T Interval: 402 ms QTC Calculation(Bazett): 411 ms P [place]: 22 degrees R [place]: 1 degrees T [place]: 18 degrees Normal sinus rhythm Normal ECG No previous ECGs available Confirmed by HCUCHO WEI ([id number]) on 04/10/2022 9:00:04 AM [place]: CHUCHO WEI Note * Jodi , INA S: TRANSCZACHERY Humphrey MD, Kal Moran: VERIFY Event Display: Result: Authored Date: Chest 2 Views Frontal and Lat Hx of Present Illness: cleaning at house, felt dizzy then my legs started shaking, my whole body was shaking, my head was bobbing up down , awake alert during event, states this has happened before since TBI, also felt left eye numbness, lasted 30 min at 1500, took 81mg ASA; Reason: Other:; Chest Pain; Clinical Question(s): Other: COMPARISON: None. FINDINGS: LINES AND TUBES: None. LUNGS AND PLEURA: Clear lungs. Normal pulmonary vascularity. No pleural effusion. No pneumothorax. HEART, MEDIASTINUM AND VICENTE: Heart is normal in size. Normal mediastinal and hilar contour. BONES AND SOFT TISSUES: No acute abnormality. IMPRESSION: No acute abnormality. WSN: [id number] Ordering Physician: Shelley Calle Dictated By: Kal Humphrey MD Dictated Date/Time: 04/09/22 7:19 pm Reviewed By: Kal Humphrey MD Signed By: Kal Humphrey MD Signed Date/Time: 04/09/22 7:19 pm Transcribed By: JORDAN Transcribed Date/Time: 04/09/22 7:19 pm Patient Care team information Care Team Personnel Name: Tiffany Sequeira MD Position: [facility] Office Staff Member Role: PCP Address: Address: [address] [place] [id number]- Care Team Related Persons Name: JANEE MICHAUD Address: [address] [place] [address] Name: NAT MICHAUD Address: home [address] [place] [address]
[2022-07-25 10:00] VITALS: BMI 30.8
[2022-07-25 10:04] VITALS: BP 139/76; PULSE 63; RESP 20; TEMP 36.6; O2SAT 97
[2022-07-25] MEDS: Lactated Ringers 1,000 ML 100 ML IVCONT (10:07)
[2022-07-25 10:11] LABS: Glucose, Whole Blood 129 mg/dL (60-115)
[2022-07-25 11:15] VITALS: BP 124/84; PULSE 68; RESP 18; TEMP 36.3; O2SAT 95
--- NOTE | 2022-07-25 11:23 | PM.OP ---
Brief Operative Note Date of Service: 07/25/22 Pre-op diagnosis: Diarrhea, rectal bleeding, screening Post-op diagnosis: other (Diverticulosis, Internal hemorrhoids) Procedure: Colonoscopy to the cecum with biopsies Surgeon: Jamil Reddy Anesthesia: MAC Was an Retail Store Clerk used for this Procedure?: No Estimated blood loss (mL): 2.0 Pathology: other (A. Ascending colon B. Descending colon) Condition: stable Disposition: PACU
[2022-07-25 11:30] VITALS: BP 141/74; PULSE 59; RESP 14; TEMP 36.3; O2SAT 96
--- NOTE | 2022-07-25 13:26 | OP_ITS ---
DATE OF SERVICE: 07/25/2022 SURGEON: Jamil Reddy MD INDICATIONS: The patient presents for evaluation of intermittent diarrhea, hematochezia, and colorectal cancer screening. Full consent has been obtained from him for this, including risks of bleeding and perforation. PREOPERATIVE DIAGNOSIS: POSTOPERATIVE DIAGNOSIS: Diarrhea, hematochezia, and colorectal cancer screening, rule out microscopic colitis, diverticulosis, and internal hemorrhoids. PROCEDURE PERFORMED: Colonoscopy to the cecum with biopsies. ESTIMATED BLOOD LOSS: COMPLICATIONS: ANESTHESIA: Monitored anesthesia care. ASSISTANTS: SPECIMENS: PREOPERATIVE DIAGNOSES: Diarrhea, hematochezia, and colorectal cancer screening. DESCRIPTION OF PROCEDURE: The patient was placed in the left lateral decubitus position. The digital rectal exam revealed no abnormalities. The Olympus video pediatric colonoscope was entered into the rectum and advanced to the cecum with the assistance of abdominal wall pressure. Once in the cecum, I did identify cecal pouch with appendiceal orifice and a normal-appearing ileocecal valve. I did have to irrigate the cecum quite a bit to clear it so as to adequately visualize it. I was able to achieve good visualization of the cecum, which appeared normal. The scope was then slowly withdrawn assessing all mucosal surfaces carefully. Preparation throughout the colon was somewhat limited due to a fair amount of retained liquid stool, which was irrigated and suctioned away as best as possible but clearly could prevent visualization of small or even medium-size lesions. I did not visualize any sign of polyps, colitis, nor angiodysplasia. Random biopsies were obtained in the ascending and descending colon. There was a mild amount of sigmoid diverticulosis. In the rectum, scope was retroflexed visualizing internal hemorrhoids, but no other pathology. The rectal mucosa appeared normal. The scope was straightened and withdrawn from the patient. He tolerated the procedure well and was returned to the recovery area in stable condition. IMPRESSION: 1. Diverticulosis. 2. Internal hemorrhoids. PLAN: The results of the biopsies will be checked. He will continue to use Imodium on a p.r.n. basis for intermittent diarrhea. Recent laboratories including celiac disease labs were negative. Given the limited prep, I would recommend a repeat colonoscopy in 5 years for screening. He will otherwise see me on a p.r.n. basis. MD LIANNA Keith/TENZIN / [id number] LATISHA
== END 2022-07-25 12:30 | disposition home or self-care (01) ==
PROVIDERS: PCP Internal Medicine; Visit Provider Internal Medicine
PROC: 0DJD8ZZ Inspection of Lower Intestinal Tract, Via Natural or Artificial Opening Endoscopic (ICD-10-PCS; CPT 45378; principal; 2022-07-25 10:40)
DX: K62.5 Hemorrhage of anus and rectum (principal); R19.7 Diarrhea, unspecified; K57.30 Diverticulosis of large intestine without perforation or abscess without bleeding; K64.8 Other hemorrhoids; E11.9 Type 2 diabetes mellitus without complications; Z79.84 Long term (current) use of oral hypoglycemic drugs
CPT/HCPCS: 45380; 82947; 88305

== ENCOUNTER 2022-12-01 14:56 | Emergency (ER) | payer OTHER, SELFPAY ==
[2022-12-01 15:59] VITALS: BP 144/80; PULSE 68; RESP 18; TEMP 36.6; O2SAT 97; BMI 30.8
--- NOTE | 2022-12-01 15:59 | ED_ITS ---
HPI - General Adult General Chief complaint: General Medical Stated complaint: Shakiness/Diabetic issue? Time Seen by Provider: 12/01/22 16:03 Source: patient Mode of arrival: ambulatory Limitations: no limitations History of Present Illness HPI narrative: 62 yo male with history of HTN, HLD, DM, NSVT, SVT, palpitations who presents to the ER for evaluation of shakiness that started 1 hour ago. He was dropping pa perwork off across the stress when he became tremulous all over. Has happened in the past when glucose is either high or low. He felt like his glucose was high so he took a leoncio supplement which is what he has been taking to manage his glucose. No longer taking metformin. The shakiness lasted a couple of minutes and then subsided. No other symptoms including no diaphoresis, weakness, numbness, tingling, chest pain, SOB, chills, fever, N/V/D or abdominal pain. POC in triage 150 MD complaint: shakiness Onset (ago): minute(s) Severity: moderate Pain Consistency: now resolved Relieving factors: medication Exacerbating factors: none Associated symptoms: denies other symptoms Treatments prior to arrival: none Related Data Home Medications Medication Instructions Recorded Confirmed clindamycin HCl 300 mg capsule 300 mg PO TID 07/24/22 09/08/22 metformin 500 mg PO DAILY 07/24/22 09/08/22 Previous Rx's Medication Instructions Recorded ibuprofen 800 mg tablet 800 mg PO BID #60 tabs 09/30/21 aspirin 81 mg tablet,delayed 81 mg PO DAILY #90 tabs 11/06/21 release (Adult Aspirin Regimen) metoprolol succinate 25 mg 25 mg PO DAILY #30 tabs 11/06/21 tablet,extended release 24 hr (Toprol XL) atorvastatin 40 mg tablet 40 mg PO BEDTIME #90 tabs 05/22/22 diphenoxylate-atropine 2.5 1 tab PO QID PRN diarrhea #20 tabs 08/19/22 mg-0.025 mg tablet (Lomotil) Allergies Allergy/AdvReac Type Severity Reaction Status Date / Time azithromycin Allergy Unknown rash Verified 09/08/22 10:09 ciprofloxacin [From CIPRO] Allergy Unknown BLISTERS Verified 09/08/22 10:09 penicillin G [PENICILLIN G] Allergy Unknown HIVES Verified 09/08/22 10:09 penicillin V Allergy Unknown anaphylaxis Verified 09/08/22 10:09 Review of Systems Review of Systems: Yes all other systems are reviewed and are negative [facility] Past Medical History Medical History (Updated 12/01/22 @ 16:02 by SARI Guadalupe) Depression Anxiety PTSD (post-traumatic stress disorder) TBI (traumatic brain injury) Internal and external bleeding hemorrhoids Diverticulitis Pain in both lower legs Chest pain Surgical History (Updated 07/24/22 @ 14:03 by Michelle Painting RN) H/O colonoscopy No significant past surgical history Family History Family History Mother No problems noted. Father No problems noted. Brother No problems noted. Brother No problems noted. Brother No problems noted. Social History Social History Housing: Apartment Alcohol intake: current Alcohol intake frequency: holidays/special occasions only Patient Tobacco Use Status: Former Tobacco user Quit Date: 1978 Tobacco use type: Cigarette Years Smoked: 5 +/- e-Cigarette/Vaping Use: Never Used Second Hand Smoke Exposure: Yes Advance Directives: No Advance Directives Information Provided: No service: No Current occupational status: employed Current occupational exposures/hazards: No Cognitive needs: No Hearing needs: No Vision needs: Yes Physical Exam ED Vital Signs: Vital Signs - 24 hr 12/01/22 15:59 Temperature 97.9 F Pulse Rate 68 Respiratory Rate 18 Blood Pressure 144/80 H Pulse Oximetry 97 Oxygen Delivery Method Room Air BMI result Body Mass Index 30.8 Appearance: Alert. Oriented X3. No acute distress. Head: normocephalic, atraumatic. Eyes: Pupils equal, round and reactive to light. ENT: Pharynx normal. No tonsillar swelling or exudate. Neck: Normal inspection. Neck supple. CVS: Normal heart rate and rhythm. Pulses normal. Respiratory: No respiratory distress. Breath sounds normal. Abdomen: Soft and nontender. +BS x4 Skin: Skin warm and dry. Normal skin color. Normal skin turgor. No rashes. Extremities: No lower extremity edema. No joint swelling. Neuro/psych: Oriented X 3. No motor deficit. No sensory deficit. CN II-XII intact. Normal speech and cognition. Steady gait Course Course Course Narrative: . Medical Decision Making Medical Decision Making [facility] Narrative: 62 yo male with history of HTN, HLD, DM, NSVT, SVT, palpitations who presents to the ER for evaluation of shakiness that started 1 hour ago. Has happened in the past when glucose is either high or low. POC in triage 150. He is asymptomatic and feels well. PE is unremarkable. Differential Diagnosis Differential Diagnoses: The differential diagnosis associated with the presentation includes hypoglycemia, hyperglycemia, anxiety, dehydration, electrolyte abnormality, focal seizure External Record Review External record reviewed: Outpatient record, Prior outpatient labs and Prior outpatient radiology Tests considered The following testing was considered but not selected: considered basic labs Chronic Conditions Patient?s care impacted by: Diabetes and Hypertension Critical Care Time Critical Care Time Critical Care Time: No Discharge Plan Discharge Clinical Impression: Shakiness Patient Disposition: Home, Self-Care Instructions: Tremors (ED) Additional Instructions: Your glucose was 150 today. Follow up with your doctor Continue to monitor your glucose levels at home If you develop new or worsening symptoms call 911 or come back to the ER for further evaluation. Prescriptions: No Action ibuprofen 800 mg tablet 800 mg PO BID Qty: 60 3RF diphenoxylate-atropine [Lomotil] 2.5-0.025 mg tablet 1 tab PO QID PRN (Reason: diarrhea) Qty: 20 0RF clindamycin HCl 300 mg capsule 300 mg PO TID metformin 500 mg PO DAILY metoprolol succinate [Toprol XL] 25 mg tablet extended release 24 hr 25 mg PO DAILY Qty: 30 3RF aspirin [Adult Aspirin Regimen] 81 mg tablet,delayed release (DR/EC) 81 mg PO DAILY Qty: 90 3RF atorvastatin 40 mg tablet 40 mg PO BEDTIME Qty: 90 3RF Interventions: ED Discharge Assessment Last Done: 12/01/22 16:07 Discharge Date/Time: 12/01/22 16:15
[2022-12-02 07:18] LABS: Glucose, Whole Blood 150 mg/dL (60-115)
== END 2022-12-01 16:15 | disposition home or self-care (01) ==
LOC: HO.ED 16:10
PROVIDERS: Emergency Provider Emergency Medicine; PCP Internal Medicine
DX: R25.1 Tremor, unspecified (principal); Z87.891 Personal history of nicotine dependence; Z79.899 Other long term (current) drug therapy
CPT/HCPCS: 82947; 99282

== ENCOUNTER 2022-12-09 11:17 | Outpatient (AMB) | payer OTHER, SELFPAY ==
[2022-12-09 11:18] VITALS: BP 132/74; PULSE 65; O2SAT 97; BMI 31.9
--- NOTE | 2022-12-09 11:18 | A.OFFPC_ITS ---
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 Accompanied by: Self / Same As Patient Allergies azithromycin Allergy (Unknown, Verified 12/09/22 11:19) rash ciprofloxacin [From CIPRO] Allergy (Unknown, Verified 12/09/22 11:19) BLISTERS penicillin G [PENICILLIN G] Allergy (Unknown, Verified 12/09/22 11:19) HIVES penicillin V Allergy (Unknown, Verified 12/09/22 11:19) anaphylaxis Medication List - Last Reconciled 12/10/22 by Juan Copeland MD aspirin (Adult Aspirin Regimen) 81 mg PO DAILY atorvastatin 40 mg PO BEDTIME clindamycin HCl 300 mg PO TID diphenoxylate-atropine 2.5-0.025 mg (Lomotil) 1 tab PO QID PRN ibuprofen 800 mg PO BID [metformin 500 mg PO DAILY] metoprolol succinate ER (Toprol XL) 25 mg PO DAILY Tobacco use date assessed: 09/08/22 Dental Screening Dental Screen Date: 12/09/22 Did you have a dental visit in the last 12 months?: No Did you have a dental problem in the last 6 months where you did not have access to dental care?: No Was dental information given to patient?: Patient has dentist HPI 3mth f/u HPI Details DM HTN and hyperlipidemia; stable on rx; dietary indiscretion PFSH Medical History Depression Anxiety PTSD (post-traumatic stress disorder) TBI (traumatic brain injury) Internal and external bleeding hemorrhoids Diverticulitis Pain in both lower legs Chest pain Surgical History H/O colonoscopy No significant past surgical history Family History Mother No problems noted. Father No problems noted. Brother No problems noted. Brother No problems noted. Brother No problems noted. Social History Housing: Apartment Alcohol intake: current Alcohol intake frequency: holidays/special occasions only Patient Tobacco Use Status: Former Tobacco user Quit Date: 1978 Tobacco use type: Cigarette Years Smoked: 5 +/- e-Cigarette/Vaping Use: Never Used Second Hand Smoke Exposure: Yes service: No Current occupational status: employed Current occupational exposures/hazards: No Cognitive needs: No Hearing needs: No Vision needs: Yes Questionnaire PHQ-9 Over the last 2 weeks, how often have you been bothered by any of the following problems? 1. Little interest or pleasure in doing things: not at all 2. Feeling down, depressed, or hopeless: not at all 3. Trouble falling or staying asleep, or sleeping too much: not at all 4. Feeling tired or having little energy: not at all 5. Poor appetite or overeating: not at all 6. Feeling bad about yourself - or that you are a failure or have let yourself or your family down: not at all 7. Trouble concentrating on things, such as reading the newspaper or watching television: not at all 8. Moving or speaking so slowly that other people could have noticed. Or the opp osite - being so fidgety or restless that you have been moving around a lot more than usual: not at all 9. Thoughts that you would be better off or of hurting yourself in some way: not at all Total score: 0 Depression Screening Interpretation: Negative 19236 - PHQ-9 Billing: Yes Source: Developed by Drs. Jamil Alatorre, Zoey Redding, Jesse Taylor and colleagues, with an educational shelby from [employer]. Thrive Questionnaire Date Thrive assessed: 04/18/22 AUDIT C Alcohol Use Questionnaire (AUDIT-C) 1. How often do you have a drink containing alcohol?: Never Total Score: 0 Score Reviewed/Action Taken: Yes SUNITA-7 AMB Questionnaire SUNITA-7 Date SUNITA - 7 assessed: 04/18/22 Source: Developed by Drs. Jamil Alatorre, Zoey Redding, Jesse Taylor and colleagues, with an educational shelby from [employer]. Review of Systems Const Denies chills, Denies headache(s) and Denies weight loss ENT Denies headache(s) Card Denies chest pain, Denies syncope, Denies irregular heart rhythm and Denies dyspnea Resp Denies chest congestion, Denies cough and Denies dyspnea GI Denies abdominal pain, Denies change in stool character, Denies nausea and Denies vomiting Musc Denies deformity and Denies joint swelling Neuro Denies syncope and Denies headache(s) Physical exam (Primary Care) Vital Signs: Last Vital Signs Pulse 65 12/09/22 11:18 BP 132/74 12/09/22 11:18 Pulse Ox 97 12/09/22 11:18 Oxygen Delivery Method Room Air 12/09/22 11:18 BMI result Body Mass Index 31.9 Tobacco/Smoking Status: Tobacco use Status Tobacco use date assessed 09/08/22 12/09/22 11:23 Patient Tobacco Use Status Former Tobacco user 12/09/22 11:23 Tobacco use type Cigarette 12/09/22 11:23 e-Cigarette/Vaping Use Never Used 12/09/22 11:23 PHQ-9: PHQ-9 Score PHQ-9: Total score 0 12/10/22 10:27 Depression Screening Interpretation: Negative Thrive Assessment: Date of Thrive Assessment Date Thrive assessed 04/18/22 12/09/22 11:23 Const General: cooperative, comfortable, no acute distress and alert Neck Neck: Yes no lymphadenopathy Thyroid: Thyroid normal Resp Effort & Inspection: normal respiratory effort Auscultation: clear to auscultation bilaterally Percussion: percussion normal Cardio Jugular venous distension: no JVD Palpation: normal PMI Rate: regular rate Rhythm: regular rhythm Heart sounds: S1 normal heart sound present and S2 normal heart sound present GI Inspection: Yes normal to inspection Palpation (GI): No hepatosplenomegaly present Skin General skin exam: no rashes or lesions noted Extrem General: Yes no clubbing, cyanosis or edema Assessment and Plan Assessment & Plan (1) Hypertension: Code(s): I10 - Essential (primary) hypertension Plan: stable; same rx (2) Hyperlipidemia: Code(s): E78.5 - Hyperlipidemia, unspecified Plan: stable; same rx (3) Diabetes mellitus with coincident hypertension: Code(s): E11.9 - Type 2 diabetes mellitus without complications; I10 - Essential ( primary) hypertension Plan: improve diet Orders: Orders Hemoglobin A1c Today R73.9 - Hyperglycemia, unspecified Coding Level of Care Code Est Pt Level 4 (03454) Diagnoses Hypertension I10 Hyperlipidemia E78.5 Diabetes mellitus with coincident hypertension E11.9; I10
== END 2022-12-09 11:31 | disposition home or self-care (01) ==
PROVIDERS: PCP Internal Medicine; Visit Provider Internal Medicine
DX: I10 Essential (primary) hypertension (principal); E78.5 Hyperlipidemia, unspecified; E11.9 Type 2 diabetes mellitus without complications
CPT/HCPCS: 99214

== ENCOUNTER 2022-12-09 11:41 | Outpatient (REF) | payer OTHER, SELFPAY ==
[2022-12-09 11:56] LABS: MANUAL DIFF FLAG NO
[2022-12-09 12:57] LABS: Basophils Absolute Auto 0.1 X10*3/uL (0.0-0.2); Basophils Percent Auto 0.7 % (0-2); Eosinophils Absolute Auto 0.2 X10*3/uL (0.0-0.4); Eosinophils Percent Auto 2.3 % (0-4); Hematocrit 46.9 % (42.0-52.0); Hemoglobin 15.7 g/dl (14.0-18.0); Imm Gran Abs Auto 0.03 X10*3/uL (0.00-0.03); Imm Gran Pct Auto 0.4 % (0.0-0.4); Lymphocytes Absolute Auto 1.7 X10*3/uL (1.2-4.9); Lymphocytes Percent Auto 24.9 % (20-40); Mean Corpuscular HGB Conc 33.5 g/dl (31.0-36.0); Mean Corpuscular Hemoglobin 29.8 pg (27.0-33.0); Mean Platelet Volume 10.2 fL (9.4-12.4); Monocytes Absolute Auto 0.7 X10*3/uL (0.1-1.2); Monocytes Percent Auto 10.1 % (2-11); Neutrophils Absolute Auto 4.2 x10*3/uL (2.0-8.3); Neutrophils Percent Auto 61.6 % (45-73); Platelet Count 225 X10*3/uL (160-400); Red Blood Count 5.27 X10*6/uL (4.60-5.80); Red Cell Distribution Width 12.3 % (11.0-16.0); White Blood Count 6.9 X10*3/uL (4.8-10.8)
[2022-12-09 13:14] LABS: Estimated Average Glucose 154 mg/dL
[2022-12-09 14:03] LABS: Alanine Aminotransferase 14 U/L (0-40); Albumin Level 4.6 g/dL (3.5-5.0); Alkaline Phosphatase 57 U/L (39-117); Anion Gap 13 (12-20); Aspartate Amino Transferase 15 U/L (5-37); Bilirubin Total 0.4 mg/dL (0.0-1.0); Blood Urea Nitrogen 17 mg/dL (9-16); Calcium 9.5 mg/dL (8.4-10.2); Carbon Dioxide 27 mmol/L (22-29); Chloride 104 mmol/L (96-108); Cholesterol 206 mg/dL (<200); Estimated Glomerular Filt Rate > 60; Glucose Fasting 184 mg/dL (60-99); HDL Cholesterol 40 mg/dL (>40); LDL Cholesterol Calculated 140 mg/dL (<100); Sodium 140 mmol/L (135-145); Total Protein 7.1 g/dL (6.5-8.0); Triglycerides 130 mg/dL (<150)
[2022-12-09 14:18] LABS: Prostate Specific Antigen Scr 0.64 ng/mL (<0.05-4.0); Thyroid Stimulating Hormone 1.24 uIU/mL (0.32-4.0)
== END 2022-12-09 11:42 | disposition home or self-care (01) ==
LOC: HO.LAB 11:41
PROVIDERS: PCP Internal Medicine; Visit Provider Internal Medicine
DX: Z00.00 Encounter for general adult medical examination without abnormal findings (principal); Z12.5 Encounter for screening for malignant neoplasm of prostate; R73.9 Hyperglycemia, unspecified; E78.5 Hyperlipidemia, unspecified; D64.9 Anemia, unspecified; N28.9 Disorder of kidney and ureter, unspecified; E03.9 Hypothyroidism, unspecified
CPT/HCPCS: 36415; 80053; 80061; 83036; 84153; 84443; 85025

== ENCOUNTER 2023-01-19 15:05 | Outpatient (AMB) | payer OTHER, SELFPAY ==
--- NOTE | 2023-01-19 15:07 | MHC.OFFVIS ---
Intake Vital Signs 01/19/23 15:09 Height 5 ft 10 in Weight 222 lb 6 oz BMI 31.9 BP 122/76 Blood Pressure Location Rt brachial Position Sitting Respiration 16 Pulse 72 Pulse Source Pulse Oximeter Pulse Oximetry (%) 97 Oxygen Delivery Method Room Air Intake Visit Reasons: NPV - Tremors/Lvm Intake Note: Pt presents to the office for follow up for tremors. 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 Allergies azithromycin Allergy (Unknown, Verified 01/19/23 15:09) rash ciprofloxacin [From CIPRO] Allergy (Unknown, Verified 01/19/23 15:09) BLISTERS penicillin G [PENICILLIN G] Allergy (Unknown, Verified 01/19/23 15:09) HIVES penicillin V Allergy (Unknown, Verified 01/19/23 15:09) anaphylaxis Medication List - Last Reconciled 01/19/23 by Swathi Louis MD aspirin 81 mg PO DAILY atorvastatin 40 mg PO BEDTIME ibuprofen 800 mg PO BID [metformin 500 mg PO DAILY] metoprolol succinate ER (Toprol XL) 25 mg PO DAILY HPI HPI Comments History of Present Illness Details 62y/o male comes for evaluation of tremors. He reports he has whole body tremors intermittently usually when his diabetes is not well controlled.He started noticing about 1 year ago. The tremors are mostly with action and posture. Low blood sugar and stress makes it worse. The tremors can last 5-10 minutes. He says if he takes powdered leoncio it helps his tremors. He reports 3-5 episodes of tremors. He is fully awake during these episodes. He denies falls.He denies palpitations during the episodes.He was diagnosed with diabetes in 2016 . He sees a physician at [facility] for his diabetes. No family h/o tremors [facility], [facility] Medical History (Updated 01/19/23 @ 15:40 by Swathi Louis MD) Occasional tremors Depression Anxiety PTSD (post-traumatic stress disorder) TBI (traumatic brain injury) Internal and external bleeding hemorrhoids Diverticulitis Pain in both lower legs Chest pain Surgical History H/O colonoscopy No significant past surgical history Family History Mother No problems noted. Father No problems noted. Brother No problems noted. Brother No problems noted. Brother No problems noted. Social History Housing: Apartment Alcohol intake: current Alcohol intake frequency: holidays/special occasions only Patient Tobacco Use Status: Former Tobacco user Quit Date: 1978 Tobacco use type: Cigarette Years Smoked: 5 +/- e-Cigarette/Vaping Use: Never Used Second Hand Smoke Exposure: Yes service: No Current occupational status: employed Current occupational exposures/hazards: No Cognitive needs: No Hearing needs: No Vision needs: Yes Review of Systems Const Denies chills, Denies headache(s) and Denies weight loss ENT Denies headache(s) Card Denies chest pain, Denies syncope, Denies irregular heart rhythm and Denies dyspnea Resp Denies chest congestion, Denies cough and Denies dyspnea GI Denies abdominal pain, Denies change in stool character, Denies nausea and Denies vomiting Musc Denies deformity and Denies joint swelling Neuro Denies syncope and Denies headache(s) Physical Exam Vital Signs: Last Vital Signs Pulse 72 01/19/23 15:09 Resp 16 01/19/23 15:09 BP 122/76 01/19/23 15:09 Pulse Ox 97 01/19/23 15:09 Oxygen Delivery Method Room Air 01/19/23 15:09 BMI result Body Mass Index 31.9 Const General: cooperative, healthy appearing and comfortable Nutritional Appearance: overweight Orientation/consciousness: patient oriented x3 Eyes Pupils: Equal, round and reactive pupils present Neuro Other: Mild head tremors - eliminated when the patient ate a [place] chocolate bar. General: patient oriented x3, tone normal, moves all extremities and no focal motor deficits Cranial nerves: Yes Equal, round and reactive pupils present, Yes Bilaterally intact EOM present, Yes Nystagmus not present, Yes Normal facial strength present and Yes Midline tongue present Cognition (Neuro): normal cognition Gait exam (Neuro): Antalgic gait present Motor exam (neuro): 5/5 motor strength present throughout and Normal motor muscle tone present throughout Deep tendon reflexes (DTR's): Right triceps reflex intensity grade: 1+, Left triceps reflex intensity grade: 0, Rt Biceps (C5, C6): 0, Left biceps reflex intensity grade: 1+, Right brachioradialis reflex intensity grade: 1+, Left brachioradialis reflex intensity grade: 1+, Right patellar reflex intensity grade: 1+ and Left patellar reflex intensity grade: 1+ Coordination: [id number] test normal Assessment & Plan Assessment & Plan (1) Occasional tremors: Comment: ? secondary to hypoglycemia ? 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
[2023-01-19 15:09] VITALS: BP 122/76; PULSE 72; RESP 16; O2SAT 97; BMI 31.9
== END 2023-01-19 15:44 | disposition home or self-care (01) ==
PROVIDERS: PCP Internal Medicine; Visit Provider Psychiatry & Neurology Neurology
DX: R25.1 Tremor, unspecified (principal)
CPT/HCPCS: 99204

== ENCOUNTER → 2023-01-19 15:05 | Outpatient (BNVA) | payer OTHER, SELFPAY | PROVIDERS: PCP Internal Medicine; Visit Provider Psychiatry & Neurology Neurology | DX: R25.1 Tremor, unspecified (principal) | CPT/HCPCS: 99202 ==

== ENCOUNTER 2023-03-30 13:59 | Outpatient (AMB) | payer OTHER, SELFPAY ==
--- NOTE | 2023-03-30 14:01 | A.OFFVIS_ITS ---
Intake Vital Signs 03/30/23 14:02 Height 5 ft 10 in Weight 225 lb 4.999 oz BMI 32.3 BP 110/60 Blood Pressure Location Lt brachial Position Sitting Pulse 84 Pulse Source Pulse Oximeter Intake Visit Reasons: 6 mth f/up Intake Note: 6 mnth f/up pt its feeling its feeling fine not having any symptoms today but have them opnce in a while. 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 He is complaining for exertional chest discomfort. He underwent echocardiography which showed normal LVEF without any wall motion abnormalities. He had exercise stress test where he was able to exercise for 6 minutes 29 seconds achieving 7.7 metabolic equivalents. He was changed to Lexiscan for some reason which did not show any definitive perfusion defect. He was referred for coronary CTA which showed mild plaque in the LAD and circumflex artery. He was started on atorvastatin. 03/30/2023: He returns for follow-up. He has not been taking his atorvastatin for few months. He had lab work in November when LDL was 140. Difficult to say whether he was taking medications at that time or not. I have advised him to restart atorvastatin and I am putting him on atorvastatin 80 mg once a day. He is complaining of left-sided facial numbness off and on along with drooping of the left eyelid specially when he is working. He also gets significant fatigue and muscle weakness. [facility] Medical History (Updated 03/30/23 @ 15:43 by Temo Cardona MD) Occasional tremors Depression Anxiety PTSD (post-traumatic stress disorder) TBI (traumatic brain injury) Internal and external bleeding hemorrhoids Diverticulitis Pain in both lower legs Chest pain Surgical History H/O colonoscopy No significant past surgical history Family History Mother No problems noted. Father No problems noted. Brother No problems noted. Brother No problems noted. Brother No problems noted. Social History Housing: Apartment Alcohol intake: current Alcohol intake frequency: holidays/special occasions only Patient Tobacco Use Status: Former Tobacco user Quit Date: 1978 Tobacco use type: Cigarette Years Smoked: 5 +/- e-Cigarette/Vaping Use: Never Used Second Hand Smoke Exposure: Yes service: No Current occupational status: employed Current occupational exposures/hazards: No Cognitive needs: No Hearing needs: No Vision needs: Yes Physical Exam Vital Signs: Last Vital Signs Pulse 84 03/30/23 14:02 BP 110/60 03/30/23 14:02 BMI result Body Mass Index 32.3 GENERAL APPEARANCE: in no acute distress, pleasant. NECK: no carotid bruit, no jugular venous distention. SKIN: no suspicious lesions, warm and dry. HEART: no murmurs, regular rate and rhythm. LUNGS: clear to auscultation bilaterally. ABDOMEN: soft, nontender. EXTREMITIES: no edema. PERIPHERAL PULSES: equal. NEUROLOGIC: No gross deficits, AAO X 3 Assessment & Plan Assessment & Plan (1) Left facial numbness: Code(s): R20.0 - Anesthesia of skin (2) Hypertension: Code(s): I10 - Essential (primary) hypertension (3) Hyperlipidemia: Code(s): E78.5 - Hyperlipidemia, unspecified Plan [age] year gentleman who is here for follow-up. He is LDL cholesterol is 140. Target is 70 or below. Putting him on atorvastatin 80 mg once a day. Will have fasting lipid panel in 2 months. He is complaining of some left-sided facial numbness and drooping of the left eyelid. He had traumatic brain injury before. He has been following with Dr. Louis. He should follow-up with Neurology. We will repeat lipid panel as mentioned above. Thank you for allowing me to participate in the care of your patient. Please feel free to contact me if you have any questions. Orders: Orders Lipid Panel Today E78.5 - Hyperlipidemia, unspecified Medications: New atorvastatin 80 mg PO BEDTIME 90 tabs 3RF Discontinued atorvastatin Discontinued Reason: None 40 mg PO BEDTIME 90 tabs 3RF Coding Level of Care Code Est Pt Level 4 (15063) Diagnoses Left facial numbness R20.0 Hypertension I10 Hyperlipidemia E78.5
[2023-03-30 14:02] VITALS: BP 110/60; PULSE 84; BMI 32.3
== END 2023-03-30 14:34 | disposition home or self-care (01) ==
PROVIDERS: Visit Provider Internal Medicine Cardiovascular Disease
DX: R20.0 Anesthesia of skin (principal); I10 Essential (primary) hypertension; E78.5 Hyperlipidemia, unspecified
CPT/HCPCS: 99214

== ENCOUNTER → 2023-03-30 13:59 | Outpatient (BNVA) | payer OTHER, SELFPAY | PROVIDERS: Visit Provider Internal Medicine Cardiovascular Disease | DX: R20.0 Anesthesia of skin (principal); I10 Essential (primary) hypertension; E78.5 Hyperlipidemia, unspecified | CPT/HCPCS: 99212 ==

== ENCOUNTER 2023-05-06 13:13 | Outpatient (AMB) | payer OTHER, SELFPAY ==
[2023-05-06 13:17] VITALS: BP 102/60; PULSE 60; O2SAT 98; BMI 31.9
--- NOTE | 2023-05-06 13:17 | A.OFFPC_ITS ---
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 Coordinator Marketing And Sales: Not Required per policy Accompanied by: Self / Same As Patient Allergies azithromycin Allergy (Unknown, Verified 05/06/23 13:17) rash ciprofloxacin [From CIPRO] Allergy (Unknown, Verified 05/06/23 13:17) BLISTERS penicillin G [PENICILLIN G] Allergy (Unknown, Verified 05/06/23 13:17) HIVES penicillin V Allergy (Unknown, Verified 05/06/23 13:17) anaphylaxis Medication List - Last Reconciled 05/06/23 by Juan Copeland MD aspirin 81 mg PO DAILY atorvastatin 80 mg PO BEDTIME diphenoxylate-atropine 2.5-0.025 mg (Lomotil) 1 tab PO QID PRN ibuprofen 800 mg PO BID [metformin 500 mg PO DAILY] Tobacco use date assessed: 05/06/23 Dental Screening Dental Screen Date: 05/06/23 Did you have a dental visit in the last 12 months?: Yes Did you have a dental problem in the last 6 months where you did not have access to dental care?: No Was dental information given to patient?: Patient has dentist HPI Fall/ Head Hit Cement HPI Details fell 2 weeks ago and hit head; some confusion [facility] Medical History (Updated 03/30/23 @ 15:43 by Temo Cardona MD) Occasional tremors Depression Anxiety PTSD (post-traumatic stress disorder) TBI (traumatic brain injury) Internal and external bleeding hemorrhoids Diverticulitis Pain in both lower legs Chest pain Surgical History H/O colonoscopy No significant past surgical history Family History Mother No problems noted. Father No problems noted. Brother No problems noted. Brother No problems noted. Brother No problems noted. Social History Housing: Apartment Alcohol intake: current Alcohol intake frequency: holidays/special occasions only Patient Tobacco Use Status: Former Tobacco user Quit Date: 1978 Tobacco use type: Cigarette Years Smoked: 5 +/- e-Cigarette/Vaping Use: Never Used Second Hand Smoke Exposure: Yes service: No Current occupational status: employed Current occupational exposures/hazards: No Cognitive needs: No Hearing needs: No Vision needs: Yes Questionnaire PHQ-9 Over the last 2 weeks, how often have you been bothered by any of the following problems? 1. Little interest or pleasure in doing things: more than half the days 2. Feeling down, depressed, or hopeless: several days 3. Trouble falling or staying asleep, or sleeping too much: not at all 4. Feeling tired or having little energy: more than half the days 5. Poor appetite or overeating: several days 6. Feeling bad about yourself - or that you are a failure or have let yourself or your family down: not at all 7. Trouble concentrating on things, such as reading the newspaper or watching television: not at all 8. Moving or speaking so slowly that other people could have noticed. Or the opposite - being so fidgety or restless that you have been moving around a lot more than usual: nearly every day 9. Thoughts that you would be better off or of hurting yourself in some way: several days Total score: 10 [id number] - PHQ-9 Billing: Yes Source: Developed by Drs. Jamil Alatorre, Zoey Redding, Jesse Taylor and colleagues, with an educational shelby from [employer]. Thrive Questionnaire Date Thrive assessed: 05/06/23 I am a: Patient What is your living situation today?: I have a steady place to live Within the past 12 months, did the food you bought not last and you didn't have the money to get more?: Never true Within the past 12 months, did you worry whether your food would run out before you got money to buy more?: Never true Do you have trouble paying for medicines?: No Do you have trouble getting transportation to medical appointments?: No Do you have trouble paying your heating and electricity bill?: No Do you have trouble taking care of your child, family member or friend?: No Do you have trouble with day-to-day activities such as bathing, preparing meals, shopping, managing finances, etc.?: No Are you currently unemployed and looking for a job?: No Are you interested in more education?: No Please select the resources that you would like help with: None THRIVE Score: 0 AUDIT C Alcohol Use Questionnaire (AUDIT-C) 1. How often do you have a drink containing alcohol?: Never Total Score: 0 Score Reviewed/Action Taken: Yes SUNITA-7 AMB Questionnaire SUNITA-7 Date SUNITA - 7 assessed: 05/06/23 Feeling nervous, anxious, or on edge: 0 = Not at all Not being able to stop or control worryin = Not at all Worrying too much about different things: 0 = Not at all Trouble relaxin = Not at all Being so restless that it is hard to sit still: 0 = Not at all Becoming easily annoyed or irritable: 0 = Not at all Feeling afraid as if something awful might happen: 0 = Not at all Total SUNITA-7 score (0-4 normal; 5-9 mild; 10-14 moderate; 15-21 severe): 0 Source: Developed by Drs. Jamil Alatorre, Zoey Redding, Jesse Taylor and colleagues, with an educational shelby from [employer]. Review of Systems Const Denies chills, Denies headache(s) and Denies weight loss ENT Denies headache(s) Card Denies chest pain, Denies syncope, Denies irregular heart rhythm and Denies dyspnea Resp Denies chest congestion, Denies cough and Denies dyspnea GI Denies abdominal pain, Denies change in stool character, Denies nausea and Denies vomiting Musc Denies deformity and Denies joint swelling Neuro Denies syncope and Denies headache(s) Physical exam (Primary Care) Vital Signs: Last Vital Signs Pulse 60 05/06/23 13:17 BP 102/60 05/06/23 13:17 Pulse Ox 98 05/06/23 13:17 Oxygen Delivery Method Room Air 05/06/23 13:17 BMI result Body Mass Index 31.9 Tobacco/Smoking Status: Tobacco use Status Tobacco use date assessed 05/06/23 05/06/23 13:18 Patient Tobacco Use Status Former Tobacco user 05/06/23 13:18 Tobacco use type Cigarette 05/06/23 13:18 e-Cigarette/Vaping Use Never Used 05/06/23 13:18 PHQ-9: PHQ-9 Score PHQ-9: Total score 10 05/06/23 13:24 Thrive Assessment: Date of Thrive Assessment Date Thrive assessed 05/06/23 05/06/23 13:18 Const General: cooperative, comfortable, no acute distress and alert Neck Neck: Yes no lymphadenopathy Thyroid: Thyroid normal Resp Effort & Inspection: normal respiratory effort Auscultation: clear to auscultation bilaterally Percussion: percussion normal Cardio Jugular venous distension: no JVD Palpation: normal PMI Rate: regular rate Rhythm: regular rhythm Heart sounds: S1 normal heart sound present and S2 normal heart sound present GI Inspection: Yes normal to inspection Palpation (GI): No hepatosplenomegaly present Skin General skin exam: no rashes or lesions noted Extrem General: Yes no clubbing, cyanosis or edema Assessment and Plan Assessment & Plan (1) Head injury: Code(s): S09.90XA - Unspecified injury of head, initial encounter Plan: ct head Orders: Orders CT head/brain wo IV con Today S09.90XA - Unspecified injury of head, initial encounter Medications: Refilled diphenoxylate-atropine 2.5-0.025 mg (Lomotil) 1 tab PO QID PRN 20 tabs 0RF diarrhea ibuprofen 800 mg PO BID 60 tabs 3RF Coding Level of Care Code Est Pt Level 3 (35121) Diagnoses Head injury S09.90XA
== END 2023-05-06 13:34 | disposition home or self-care (01) ==
PROVIDERS: PCP Internal Medicine; Visit Provider Internal Medicine
DX: S09.90XA Unspecified injury of head, initial encounter (principal); W19.XXXA Unspecified fall, initial encounter
CPT/HCPCS: 99213

== ENCOUNTER 2023-06-18 12:57 | Outpatient (REF) | payer OTHER, SELFPAY ==
--- NOTE | ~2023-06-18 | CT_ITS ---
EXAMINATION: CT HEAD WITHOUT CONTRAST CLINICAL INFORMATION: Head injury COMPARISON: 04/29/2022 TECHNIQUE: Contiguous axial imaging was performed from the skull base to vertex without intravenous administration of contrast. This CT examination was performed using dose optimization techniques as appropriate, variously including the following: *Automated exposure control *Adjustment of mA and/or kV according to patient size (this includes techniques or standardized protocols for targeted exams where dose is matched to indication/reason for exam; i.e. extremities or head) *Use of iterative reconstruction technique DLP: 1041 mGy-cm FINDINGS: There is no evidence of acute intracranial hemorrhage or territorial infarction. No abnormal mass effect or midline shift is seen. Estrada to white matter differentiation is well preserved. No extra-axial fluid collections are identified. The ventricles are normal in size. There is no abnormal attenuation within the brain parenchyma. The osseous structures and soft tissues are normal. The mastoid air cells and visualized portions of the paranasal sinuses are well-aerated. CT/CT head/brain wo IV con IMPRESSION: No acute intracranial pathology.
== END 2023-06-18 12:58 | disposition home or self-care (01) ==
LOC: HO.CT 12:57
PROVIDERS: PCP Internal Medicine; Visit Provider Internal Medicine
DX: S09.90XA Unspecified injury of head, initial encounter (principal)
CPT/HCPCS: 70450

== ENCOUNTER 2023-07-06 14:59 | Outpatient (AMB) | payer OTHER, SELFPAY ==
--- NOTE | 2023-07-06 15:06 | A.OFFVIS_ITS ---
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 [employer] Required: No Accompanied by: Self / Same As Patient Allergies azithromycin Allergy (Unknown, Verified 07/06/23 15:10) rash ciprofloxacin [From CIPRO] Allergy (Unknown, Verified 07/06/23 15:10) BLISTERS penicillin G [PENICILLIN G] Allergy (Unknown, Verified 07/06/23 15:10) HIVES penicillin V Allergy (Unknown, Verified 07/06/23 15:10) anaphylaxis Medication List - Last Reconciled 07/06/23 by Swathi Louis MD aspirin 81 mg PO DAILY atorvastatin 80 mg PO BEDTIME diphenoxylate-atropine 2.5-0.025 mg (Lomotil) 1 tab PO QID PRN ibuprofen 800 mg PO BID [metformin 500 mg PO DAILY] HPI Comments Details: 62y/o male comes for follow up of tremors and headaches following a fall. . He reports he has whole body tremors intermittently usually when his diabetes is not well controlled.He started noticing about 1 year ago. The tremors are mostly with action and posture. Low blood sugar and stress makes it worse. These episodes can happen daily or 1-2 times a week. The tremors can last 5-10 minutes. He says if he takes powdered leoncio it helps his tremors. He reports 3-5 episodes of tremors. He is fully awake during these episodes. Deep breathing and relaxing helps the tremors He reports fall 2 months ago - he was attacked by a dog and he fell on the floor. No loss of consciousness. EMT checked his vitals and he was ok He had dizziness for few days and has headaches . Now he has daily headaches , with some light sensitivity .He takes excedrin or ibuprofen CT head was normal . He denies falls.He denies palpitations during the episodes.He was diagnosed with diabetes in 2016 . He sees a physician at [place] for his diabetes. No family h/o tremors [facility] Medical History (Updated 07/06/23 @ 15:27 by Swathi Louis MD) Generalized headaches Occasional tremors Depression Anxiety PTSD (post-traumatic stress disorder) TBI (traumatic brain injury) Internal and external bleeding hemorrhoids Diverticulitis Pain in both lower legs Chest pain Surgical History H/O colonoscopy No significant past surgical history Family History Mother No problems noted. Father No problems noted. Brother No problems noted. Brother No problems noted. Brother No problems noted. Social History Housing: Apartment Alcohol intake: current Alcohol intake frequency: holidays/special occasions only Patient Tobacco Use Status: Former Tobacco user Quit Date: 1978 Tobacco use type: Cigarette Years Smoked: 5 +/- e-Cigarette/Vaping Use: Never Used Second Hand Smoke Exposure: Yes service: No Current occupational status: employed Current occupational exposures/hazards: No Cognitive needs: No Hearing needs: No Vision needs: Yes Physical Exam Vital Signs: Last Vital Signs Pulse 71 07/06/23 15:08 BP 120/60 07/06/23 15:08 Pulse Ox 97 07/06/23 15:08 Oxygen Delivery Method Room Air 07/06/23 15:08 BMI result Body Mass Index 32.1 Const General: cooperative, healthy appearing and comfortable Nutritional Appearance: overweight Orientation/consciousness: patient oriented x3 Eyes Pupils: Equal, round and reactive pupils present Neuro Other: no tremors General: patient oriented x3, tone normal, moves all extremities and no focal motor deficits Cranial nerves: Yes Equal, round and reactive pupils present, Yes Bilaterally intact EOM present, Yes Nystagmus not present, Yes Normal facial strength present and Yes Midline tongue present Cognition (Neuro): normal cognition Gait exam (Neuro): Antalgic gait present Motor exam (neuro): 5/5 motor strength present throughout and Normal motor muscle tone present throughout Deep tendon reflexes (DTR's): Right triceps reflex intensity grade: 1+, Left triceps reflex intensity grade: 0, Rt Biceps (C5, C6): 0, Left biceps reflex intensity grade: 1+, Right brachioradialis reflex intensity grade: 1+, Left brachioradialis reflex intensity grade: 1+, Right patellar reflex intensity grade: 1+ and Left patellar reflex intensity grade: 1+ Coordination: [id number]-me-[id number] test normal Assessment & Plan Assessment & Plan (1) Occasional tremors: Comment: ? secondary to hypoglycemia ? mood disorder Code(s): R25.1 - Tremor, unspecified Category: Medical (2) Generalized headaches: Comment: post head injury on Code(s): R51.9 - Headache, unspecified Category: Medical Plan No tremors today His last Hg A1C 2 months ago was 7 I suggested he follow up with complaint evaluation supervisor for better control of his diabetes - may benefit from CGM I will trial him on gabapentin 100-300 mg qhs for headaches Medications: New gabapentin 1-3 caps orally bedtime; 90 caps 3RF
[2023-07-06 15:08] VITALS: BP 120/60; PULSE 71; O2SAT 97; BMI 32.1
== END 2023-07-06 15:32 | disposition home or self-care (01) ==
LOC: HO.HSMS 15:02
PROVIDERS: PCP Internal Medicine; Visit Provider Psychiatry & Neurology Neurology
DX: R25.1 Tremor, unspecified (principal); G44.309 Post-traumatic headache, unspecified, not intractable; E11.65 Type 2 diabetes mellitus with hyperglycemia
CPT/HCPCS: 99214

== ENCOUNTER → 2023-07-06 15:02 | Outpatient (BNVA) | payer OTHER, SELFPAY | PROVIDERS: PCP Internal Medicine; Visit Provider Psychiatry & Neurology Neurology | DX: R25.1 Tremor, unspecified (principal); R51.9 Headache, unspecified | CPT/HCPCS: 99212 ==

== ENCOUNTER 2023-10-05 13:38 | Outpatient (AMB) | payer OTHER, SELFPAY ==
[2023-10-05 13:46] VITALS: BP 130/60; PULSE 70; BMI 30.8
--- NOTE | 2023-10-05 13:46 | A.OFFVIS_ITS ---
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: No Accompanied by: Self / Same As Patient Allergies azithromycin Allergy (Unknown, Verified 07/06/23 15:10) rash ciprofloxacin [From CIPRO] Allergy (Unknown, Verified 07/06/23 15:10) BLISTERS penicillin G [PENICILLIN G] Allergy (Unknown, Verified 07/06/23 15:10) HIVES penicillin V Allergy (Unknown, Verified 07/06/23 15:10) anaphylaxis Medication List - Last Reconciled 10/05/23 by Temo Cardona MD aspirin 81 mg PO DAILY atorvastatin 80 mg PO BEDTIME diphenoxylate-atropine 2.5-0.025 mg (Lomotil) 1 tab PO QID PRN ibuprofen 800 mg PO BID [metformin 500 mg PO DAILY] HPI Comments Details: 63-year-old gentleman here for follow-up. He is complaining for exertional chest discomfort. He underwent echocardiography which showed normal LVEF without any wall motion abnormalities. He had exercise stress test where he was able to exercise for 6 minutes 29 seconds achieving 7.7 metabolic equivalents. He was changed to Lexiscan for some reason which did not show any definitive perfusion defect. He was referred for coronary CTA which showed mild plaque in the LAD and circumflex artery. He was started on atorvastatin. 03/30/2023: He returns for follow-up. He has not been taking his atorvastatin for few months. He had lab work in November when LDL was 140. Difficult to say whether he was taking medications at that time or not. I have advised him t o restart atorvastatin and I am putting him on atorvastatin 80 mg once a day. He is complaining of left-sided facial numbness off and on along with drooping of the left eyelid specially when he is working. He also gets significant fatigue and muscle weakness. 10/05/2023: He is here for follow-up. He has been taking medications regularly. Blood pressure is normal. His last LDL cholesterol was 140 on 12/09/2022. He was advised to repeat it but it appears he has not done any repeat testing. I have advised him to do fasting lipid panel and he plans to do it tomorrow. [facility] Medical History (Updated 07/06/23 @ 15:27 by Swathi Louis MD) Generalized headaches Occasional tremors Depression Anxiety PTSD (post-traumatic stress disorder) TBI (traumatic brain injury) Internal and external bleeding hemorrhoids Diverticulitis Pain in both lower legs Chest pain Surgical History H/O colonoscopy No significant past surgical history Family History Mother No problems noted. Father No problems noted. Brother No problems noted. Brother No problems noted. Brother No problems noted. Social History Housing: Apartment Alcohol intake: current Alcohol intake frequency: holidays/special occasions only Patient Tobacco Use Status: Former Tobacco user Tobacco use type: Cigarette Years Smoked: 5 +/- e-Cigarette/Vaping Use: Never Used Second Hand Smoke Exposure: Yes service: No Current occupational status: employed Current occupational exposures/hazards: No Cognitive needs: No Hearing needs: No Vision needs: Yes Review of Systems Const Denies chills, Denies fatigue, Denies fever(s), Denies frequent falls, Denies weakness, Denies weight gain and Denies weight loss ENT Denies dizziness Card Denies chest pain, Denies leg edema, Denies lightheadedness, Denies palpitations, Denies dyspnea and Denies dyspnea on exertion Resp Denies cough, Denies dyspnea and Denies dyspnea on exertion GI Denies hematochezia Musc Denies abnormal gait, Denies muscle weakness, Denies numbness, Denies radiating pain into limb and Denies tingling Neuro Denies abnormal gait, Denies dizziness, Denies frequent falls, Denies numbness, Denies tingling and Denies weakness Endo Denies fatigue and Denies palpitations Physical Exam Vital Signs: Last Vital Signs Pulse 70 10/05/23 13:46 BP 130/60 10/05/23 13:46 BMI result Body Mass Index 30.8 GENERAL APPEARANCE: in no acute distress, pleasant. NECK: no carotid bruit, no jugular venous distention. SKIN: no suspicious lesions, warm and dry. HEART: no murmurs, regular rate and rhythm. LUNGS: clear to auscultation bilaterally. ABDOMEN: soft, nontender. EXTREMITIES: no edema. PERIPHERAL PULSES: equal. NEUROLOGIC: No gross deficits, AAO X 3 Office Procedures EKG Details: Sinus rhythm 70 beats per minute, normal axis, nonspecific ST changes, QTC 423 milliseconds. [id number], Complete Assessment & Plan Assessment & Plan (1) Hyperlipidemia: Code(s): E78.5 - Hyperlipidemia, unspecified Category: Medical Plan Pleasant 63 year gentleman who is here for follow-up. He has background of diabetes and hyperlipidemia. Last blood workup was in 12/03/2022 when total cholesterol was 206, LDL 140, HDL 40 and triglycerides were 130. He is currently taking atorvastatin 80 mg daily. He is on metformin for diabetes. I have advised him to do fasting lipid panel which he plans to do tomorrow. Target LDL is less than 70. Blood pressure well controlled. Thank you for allowing me to participate in the care of your patient. Please feel free to contact me if you have any questions. Orders: Orders 2 Lipid Panel Today E78.5 - Hyperlipidemia, unspecified Coding Level of Care Code Est Pt Level 3 (78822) Diagnoses Hyperlipidemia E78.5 CPT Codes EKG - CPT: 70220-[id number], Complete ([id number])
== END 2023-10-05 14:04 | disposition home or self-care (01) ==
PROVIDERS: PCP Internal Medicine; Referring Provider Internal Medicine; Visit Provider Internal Medicine Cardiovascular Disease
DX: E78.5 Hyperlipidemia, unspecified (principal)
CPT/HCPCS: 93010; 99213

== ENCOUNTER → 2023-10-05 13:38 | Outpatient (BNVA) | payer OTHER, SELFPAY | PROVIDERS: PCP Internal Medicine; Visit Provider Internal Medicine Cardiovascular Disease | DX: E78.5 Hyperlipidemia, unspecified (principal) | CPT/HCPCS: 93005; 99212 ==

== ENCOUNTER 2023-10-12 11:15 | Outpatient (REF) | payer OTHER, SELFPAY ==
[2023-10-12 13:07] LABS: Cholesterol 167 mg/dL (<200); HDL Cholesterol 44 mg/dL (>40); LDL Cholesterol Calculated 108 mg/dL (<100); Triglycerides 78 mg/dL (<150)
== END 2023-10-12 11:16 | disposition home or self-care (01) ==
LOC: HO.LAB 11:15
PROVIDERS: PCP Internal Medicine; Visit Provider Internal Medicine Cardiovascular Disease
DX: E78.5 Hyperlipidemia, unspecified (principal)
CPT/HCPCS: 36415; 80061

== ENCOUNTER 2023-11-09 14:58 | Outpatient (AMB) | payer MEDICAID, SELFPAY ==
[2023-11-09 15:00] VITALS: BP 142/84; PULSE 76; O2SAT 96; BMI 31.1
--- NOTE | 2023-11-09 15:00 | MHC.PC.OV ---
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 Accompanied by: Self / Same As Patient Allergies azithromycin Allergy (Unknown, Verified 11/09/23 15:05) rash ciprofloxacin [From CIPRO] Allergy (Unknown, Verified 11/09/23 15:05) BLISTERS penicillin G [PENICILLIN G] Allergy (Unknown, Verified 11/09/23 15:05) HIVES penicillin V Allergy (Unknown, Verified 11/09/23 15:05) anaphylaxis Medication List - Last Reconciled 11/10/23 by Juan Copeland MD aspirin 81 mg PO DAILY atorvastatin 80 mg PO BEDTIME diphenoxylate-atropine 2.5-0.025 mg (Lomotil) 1 tab PO QID PRN ezetimibe 10 mg PO DAILY ibuprofen 800 mg PO BID [metformin 500 mg PO DAILY] Tobacco use date assessed: 05/06/23 Dental Screening Dental Screen Date: 05/06/23 HPI 6 month f/u HPI Details hyperlipidemia on rx; due for labs [facility] Medical History (Updated 07/06/23 @ 15:27 by Swathi Louis MD) Generalized headaches Occasional tremors Depression Anxiety PTSD (post-traumatic stress disorder) TBI (traumatic brain injury) Internal and external bleeding hemorrhoids Diverticulitis Pain in both lower legs Chest pain Surgical History H/O colonoscopy No significant past surgical history Family History Mother No problems noted. Father No problems noted. Brother No problems noted. Brother No problems noted. Brother No problems noted. Social History Housing: Apartment Alcohol intake: current Alcohol intake frequency: holidays/special occasions only Patient Tobacco Use Status: Former Tobacco user Tobacco use type: Cigarette Years Smoked: 5 +/- e-Cigarette/Vaping Use: Never Used Second Hand Smoke Exposure: Yes service: No Current occupational status: employed Current occupational exposures/hazards: No Cognitive needs: No Hearing needs: No Vision needs: Yes Questionnaire PHQ-9 Over the last 2 weeks, how often have you been bothered by any of the following problems? 1. Little interest or pleasure in doing things: more than half the days 2. Feeling down, depressed, or hopeless: several days 3. Trouble falling or staying asleep, or sleeping too much: not at all 4. Feeling tired or having little energy: more than half the days 5. Poor appetite or overeating: several days 6. Feeling bad about yourself - or that you are a failure or have let yourself or your family down: not at all 7. Trouble concentrating on things, such as reading the newspaper or watching television: not at all 8. Moving or speaking so slowly that other people could have noticed. Or the opposite - being so fidgety or restless that you have been moving around a lot more than usual: nearly every day 9. Thoughts that you would be better off or of hurting yourself in some way: several days Total score: 10 [id number] - PHQ-9 Billing: Yes Source: Developed by Drs. Jamil Alatorre, Zoey Redding, Jesse Taylor and colleagues, with an educational shelby from [employer]. Thrive Questionnaire Date Thrive assessed: 05/06/23 AUDIT C Alcohol Use Questionnaire (AUDIT-C) 1. How often do you have a drink containing alcohol?: Never Total Score: 0 Score Reviewed/Action Taken: Yes SUNITA-7 AMB Questionnaire SUNITA-7 Date SUNITA - 7 assessed: 05/06/23 Source: Developed by Drs. Jamil Alatorre, Zoey Redding, Jesse Taylor and colleagues, with an educational shelby from [employer]. Review of Systems Const Denies chills, Denies headache(s) and Denies weight loss ENT Denies headache(s) Card Denies chest pain, Denies syncope, Denies irregular heart rhythm and Denies dyspnea Resp Denies chest congestion, Denies cough and Denies dyspnea GI Denies abdominal pain, Denies change in stool character, Denies nausea and Denies vomiting Musc Denies deformity and Denies joint swelling Neuro Denies syncope and Denies headache(s) Physical exam (Primary Care) Vital Signs: Last Vital Signs Pulse 76 11/09/23 15:00 BP 142/84 H 11/09/23 15:00 Pulse Ox 96 11/09/23 15:00 Oxygen Delivery Method Room Air 11/09/23 15:00 BMI result Body Mass Index 31.1 Tobacco/Smoking Status: Tobacco use Status Tobacco use date assessed 05/06/23 11/09/23 15:04 Patient Tobacco Use Status Former Tobacco user 11/09/23 15:04 Tobacco use type Cigarette 11/09/23 15:04 e-Cigarette/Vaping Use Never Used 11/09/23 15:04 PHQ-9: PHQ-9 Score PHQ-9: Total score 10 11/09/23 15:10 Thrive Assessment: Date of Thrive Assessment Date Thrive assessed 05/06/23 11/09/23 15:04 Const General: cooperative, comfortable, no acute distress and alert Neck Neck: Yes no lymphadenopathy Thyroid: Thyroid normal Resp Effort & Inspection: normal respiratory effort Auscultation: clear to auscultation bilaterally Percussion: percussion normal Cardio Jugular venous distension: no JVD Palpation: normal PMI Rate: regular rate Rhythm: regular rhythm Heart sounds: S1 normal heart sound present and S2 normal heart sound present GI Inspection: Yes normal to inspection Palpation (GI): No hepatosplenomegaly present Skin General skin exam: no rashes or lesions noted Extrem General: Yes no clubbing, cyanosis or edema Results AMB Hemoglobin A1c AMB Hemoglobin A1c 7.3 % Last Edit by Rosana Stanford CMA on 11/09/23 15:12 Results Reviewed Results Reviewed: Laboratory Last Values Hgb A1c (Clinic) 7.3 % (4.0-6.0) H 11/09/23 15:11 Assessment and Plan Assessment & Plan (1) Hyperlipidemia: Code(s): E78.5 - Hyperlipidemia, unspecified Plan: stable; same rx; do labs Orders: Orders Lipid Panel Today Z13.220 - Encounter for screening for lipoid disorders Thyroid Stimulating Hormone Today Z13.29 - Encounter for screening for other suspected endocrine disorder Microalbumin, Random (w Creat) Today E11.69 - Type 2 diabetes mellitus with other specified complication, E66.01 - Morbid (severe) obesity due to excess calories AMB Hemoglobin A1c 11/09/23 E11.9 - Type 2 diabetes mellitus without complications, I10 - Essential (primary) hypertension Complete Blood Count Auto Diff Today Z13.0 - Encounter for screening for diseases of the blood and blood-forming organs and certain disorders involving the immune mechanism Comprehensive [place]. Panel Fast Today Z13.9 - Encounter for screening, unspecified Hemoglobin A1c Today R73.9 - Hyperglycemia, unspecified Medications: Refilled ibuprofen 800 mg PO BID 60 tabs 3RF diphenoxylate-atropine 2.5-0.025 mg (Lomotil) 1 tab PO QID PRN 20 tabs 0RF diarrhea Coding Level of Care Code Est Pt Level 3 (07601) Diagnoses Hyperlipidemia E78.5
== END 2023-11-09 15:29 | disposition home or self-care (01) ==
PROVIDERS: PCP Internal Medicine; Visit Provider Internal Medicine
DX: E11.9 Type 2 diabetes mellitus without complications (principal)
CPT/HCPCS: 83036; 99213

== ENCOUNTER 2024-01-06 15:29 | Outpatient (AMB) | payer OTHER, SELFPAY ==
--- NOTE | 2024-01-06 15:33 | A.OFFVIS_ITS ---
Vital Signs 01/06/24 15:34 Height 5 ft 10 in Weight 220 lb 6 oz BMI 31.6 BP 124/80 Blood Pressure Location Lt brachial Position Sitting Pulse 74 Pulse Source Pulse Oximeter Pulse Oximetry (%) 96 Oxygen Delivery Method Room Air Intake Visit Reasons: Follow up Tremors Intake Note: Patient presents in office for a 5 mo fu for tremors. Patient reports that he has been experiencing heart palpitations, frequent headaches, and feeling weak. 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 Required: No Accompanied by: Self / Same As Patient Allergies azithromycin Allergy (Unknown, Verified 01/06/24 15:37) rash ciprofloxacin [From CIPRO] Allergy (Unknown, Verified 01/06/24 15:37) BLISTERS penicillin G [PENICILLIN G] Allergy (Unknown, Verified 01/06/24 15:37) HIVES penicillin V Allergy (Unknown, Verified 01/06/24 15:37) anaphylaxis Medication List - Last Reconciled 01/06/24 by Swathi Louis MD aspirin 81 mg PO DAILY atorvastatin 80 mg PO BEDTIME diphenoxylate-atropine 2.5-0.025 mg (Lomotil) 1 tab PO QID PRN ezetimibe 10 mg PO DAILY ibuprofen 800 mg PO BID [metformin 500 mg PO DAILY] HPI Comments Details: 63y/o male comes for follow up of tremors and headaches following a fall.Tremors are better now but still has persistent headaches . It starts in the back of his neck and usually massaging the back of his head helps. He takes ibuprofen 1-2 a day.. Now he has daily headaches , with some noise , light sensitivity .He takes excedrin or ibuprofen CT head was normal . [facility] Medical History Generalized headaches Occasional tremors Depression Anxiety PTSD (post-traumatic stress disorder) TBI (traumatic brain injury) Internal and external bleeding hemorrhoids Diverticulitis Pain in both lower legs Chest pain Surgical History H/O colonoscopy No significant past surgical history Family History Mother No problems noted. Father No problems noted. Brother No problems noted. Brother No problems noted. Brother No problems noted. Social History Housing: Apartment Alcohol intake: current Alcohol intake frequency: holidays/special occasions only Patient Tobacco Use Status: Former Tobacco user Tobacco use type: Cigarette Years Smoked: 5 +/- e-Cigarette/Vaping Use: Never Used Second Hand Smoke Exposure: Yes service: No Current occupational status: employed Current occupational exposures/hazards: No Cognitive needs: No Hearing needs: No Vision needs: Yes Physical Exam Vital Signs: Last Vital Signs Pulse 74 01/06/24 15:34 BP 124/80 01/06/24 15:34 Pulse Ox 96 01/06/24 15:34 Oxygen Delivery Method Room Air 01/06/24 15:34 BMI result Body Mass Index 31.6 Const General: cooperative, healthy appearing and comfortable Nutritional Appearance: overweight Orientation/consciousness: patient oriented x3 Eyes Pupils: Equal, round and reactive pupils present Neuro Other: no tremors General: patient oriented x3, tone normal, moves all extremities and no focal motor deficits Cranial nerves: Yes Equal, round and reactive pupils present, Yes Bilaterally intact EOM present, Yes Nystagmus not present, Yes Normal facial strength present and Yes Midline tongue present Cognition (Neuro): normal cognition Gait exam (Neuro): Antalgic gait present Motor exam (neuro): 5/5 motor strength present throughout and Normal motor muscle tone present throughout Coordination: [id number]-cd-ioad test normal Assessment & Plan Assessment & Plan (1) Cervicalgia: Code(s): M54.2 - Cervicalgia Category: Medical (2) Generalized headaches: Comment: post head injury on Code(s): R51.9 - Headache, unspecified Category: Medical Plan I will trial him on baclofen 10mg qhs PT for neck myofascial release Decrease ibuprofen use Orders: Orders PT Evaluation and Treatment Today M54.2 - Cervicalgia Medications: New baclofen 10 mg PO BEDTIME 30 tabs 2RF Coding Level of Care Code Est Pt Level 4 (73422) Diagnoses Cervicalgia M54.2 Generalized headaches R51.9
[2024-01-06 15:34] VITALS: BP 124/80; PULSE 74; O2SAT 96; BMI 31.6
== END 2024-01-06 15:49 | disposition home or self-care (01) ==
PROVIDERS: PCP Internal Medicine; Visit Provider Psychiatry & Neurology Neurology
DX: M54.2 Cervicalgia (principal); R51.9 Headache, unspecified
CPT/HCPCS: 99214

== ENCOUNTER → 2024-01-06 15:29 | Outpatient (BNVA) | payer OTHER, SELFPAY | PROVIDERS: PCP Internal Medicine; Visit Provider Psychiatry & Neurology Neurology | DX: M54.2 Cervicalgia (principal); R51.9 Headache, unspecified | CPT/HCPCS: 99212 ==

== ENCOUNTER 2024-03-21 14:30 | Outpatient (AMB) | payer OTHER, SELFPAY ==
[2024-03-21 14:29] VITALS: BP 122/80; PULSE 75; O2SAT 99; BMI 32.3
--- NOTE | 2024-03-21 14:29 | MHC.OFFVIS ---
Vital Signs 03/21/24 14:29 Height 5 ft 10 in Weight 225 lb 2 oz BMI 32.3 BP 122/80 Blood Pressure Location Lt brachial Position Sitting Pulse 75 Pulse Source Pulse Oximeter Pulse Oximetry (%) 99 Oxygen Delivery Method Room Air Intake Visit Reasons: Follow up Tremors Allergies azithromycin Allergy (Unknown, Verified 03/21/24 14:34) rash ciprofloxacin [From CIPRO] Allergy (Unknown, Verified 03/21/24 14:34) BLISTERS penicillin G [PENICILLIN G] Allergy (Unknown, Verified 03/21/24 14:34) HIVES penicillin V Allergy (Unknown, Verified 03/21/24 14:34) anaphylaxis Medication List - Last Reconciled 03/21/24 by Emmanuel Robles PA-C aspirin 81 mg PO DAILY atorvastatin 80 mg PO BEDTIME baclofen 10 mg PO BEDTIME diphenoxylate-atropine 2.5-0.025 mg (Lomotil) 1 tab PO QID PRN ezetimibe 10 mg PO DAILY ibuprofen 400 mg (1/2 x 800 mg) PO BID [metformin 500 mg PO DAILY] pramipexole 0.25 mg PO BEDTIME HPI Comments Details: 63 y/o male comes for follow up of tremors and headaches following a fall. Tremors are better now but still has persistent headaches d/t fall Apr 2023. Still wakes up 2-3x a night with nightmarish , dreams. Diabetes, A1c, is 7.35 now, on Metformin adverse s/e diarrhea and unable to work. Headaches starts in the back of his neck and usually they will migrate to the back of his head, massaging the back of his head helps. He takes ibuprofen 1-2 800mg BID, PRN. He has daily headaches with some photo/phonophobia and osmophobia, auras. sensitivity. He takes Excedrin OTC if they are terrible and just wont go away. He has fragmented sleep patterns, due to his TBI during his service. He c/o snoring, fatigue, abnormal sleep patterns. He has anxiety and mood is terrible, needs to focus on better nutritional intake. His diet is poor. He does not smoke or drink alcohol. [facility] Medical History Cervicalgia Generalized headaches Occasional tremors Depression Anxiety PTSD (post-traumatic stress disorder) TBI (traumatic brain injury) Internal and external bleeding hemorrhoids Diverticulitis Pain in both lower legs Chest pain Surgical History H/O colonoscopy No significant past surgical history Family History Mother No problems noted. Father No problems noted. Brother No problems noted. Brother No problems noted. Brother No problems noted. Social History Housing: Apartment Alcohol intake: current Alcohol intake frequency: holidays/special occasions only Patient Tobacco Use Status: Former Tobacco user Tobacco use type: Cigarette Years Smoked: 5 +/- e-Cigarette/Vaping Use: Never Used Second Hand Smoke Exposure: Yes service: No Current occupational status: employed Current occupational exposures/hazards: No Cognitive needs: No Hearing needs: No Vision needs: Yes Review of Systems Const All systems reviewed & are unremarkable except as noted in HPI and below Physical Exam Vital Signs: Last Vital Signs Pulse 75 03/21/24 14:29 BP 122/80 03/21/24 14:29 Pulse Ox 99 03/21/24 14:29 Oxygen Delivery Method Room Air 03/21/24 14:29 BMI result Body Mass Index 32.3 Const General: cooperative and no acute distress Nutritional Appearance: average body habitus and obese (BMI 32) Orientation/consciousness: patient oriented x3 HEENT Face and sinus: Yes normal facial exam and Yes face symmetric Throat: Yes other ([place] score of 3) Eyes Pupils: Equal, round and reactive pupils present Neck Neck: Yes full ROM (Limited ROM to the L>R) Resp Effort & Inspection: normal respiratory effort and able to speak in complete sentences Neuro General: patient oriented x3 and moves all extremities Cranial nerves: Yes CN's II-XII intact bilaterally, Yes Facial sensation intact/muscles of mastication intact, Yes Equal, round and reactive pupils present, Yes Normal accommodation reflex present, Yes Bilaterally intact EOM present, Yes Nystagmus not present, Yes Normal facial strength present, Yes Midline tongue present, Yes Ability to bilaterally rotate head present (Limited ROM R>L) and Yes Ability to bilaterally elevate shoulders present Cognition (Neuro): normal cognition Gait exam (Neuro): Normal gait present Motor exam (neuro): 5/5 motor strength present throughout, Normal motor muscle tone present throughout and Tremors during motor activity present (RUE >LUE) Deep tendon reflexes (DTR's): Right triceps reflex intensity grade: 2+, Left triceps reflex intensity grade: 2+, Rt Biceps (C5, C6): 2+, Left biceps reflex intensity grade: 2+, Right brachioradialis reflex intensity grade: 2+, Left brachioradialis reflex intensity grade: 2+, Right patellar reflex intensity grade: 2+ and Left patellar reflex intensity grade: 2+ Assessment & Plan Assessment & Plan (1) Fatigue due to sleep pattern disturbance: Code(s): R53.83 - Other fatigue; G47.9 - Sleep disorder, unspecified Category: Medical (2) Cervicalgia: Code(s): M54.2 - Cervicalgia Category: Medical (3) Occasional tremors: Comment: ? secondary to hypoglycemia ? mood disorder Code(s): R25.1 - Tremor, unspecified Category: Medical (4) Pain in both lower legs: Code(s): M79.661 - Pain in right lower leg; M79.662 - Pain in left lower leg Category: Medical Plan HST : Fragmented/ Intermittent Sleep evaluation of sleep disorder. Cervicalgia: Baclofen 10mg PO at bedtime daily Melatonin 10mg PO at bedtime daily Pramipexole 0.25mg PO daily at bedtime RLS? Neuropathy? Tingling Numbness sensation in the feet bilaterally Ibuprofen PRN as needed for knee pain not to exceed 400mg BID. F/U in 3 months or sooner as needed, may call or message us on the portal. Orders: Orders RT home sleep study Today G47.9 - Sleep disorder, unspecified, R53.83 - Other fatigue Medications: New pramipexole RLS? 0.25 mg PO BEDTIME 30 tabs 3RF Changed From ibuprofen 800 mg PO BID 60 tabs 3RF To ibuprofen knee pain - one tablet as needed for pain 400 mg (1/2 x 800 mg) PO BID 60 tabs 3RF Refilled baclofen 10 mg PO BEDTIME 30 tabs 2RF Coding Level of Care Code Est Pt Level 4 (27910) Diagnoses Fatigue due to sleep pattern disturbance R53.83; G47.9 Cervicalgia M54.2 Occasional tremors R25.1 Pain in both lower legs M79.661; M79.662 Time Spent (min) 40 Comment Worsening
== END 2024-03-21 15:20 | disposition home or self-care (01) ==
PROVIDERS: PCP Internal Medicine; Visit Provider Physician Assistant Medical
DX: R53.83 Other fatigue (principal); G47.9 Sleep disorder, unspecified; M54.2 Cervicalgia; R25.1 Tremor, unspecified; M79.661 Pain in right lower leg; M79.662 Pain in left lower leg
CPT/HCPCS: 99214

== ENCOUNTER → 2024-03-21 14:30 | Outpatient (BNVA) | payer OTHER, SELFPAY | PROVIDERS: PCP Internal Medicine; Visit Provider Physician Assistant Medical | DX: R53.83 Other fatigue (principal); R25.1 Tremor, unspecified; M79.661 Pain in right lower leg; M79.662 Pain in left lower leg; G47.9 Sleep disorder, unspecified; M54.2 Cervicalgia | CPT/HCPCS: 99212 ==

== ENCOUNTER → 2024-04-18 11:47 | Outpatient (BNVA) | payer OTHER, SELFPAY | PROVIDERS: PCP Internal Medicine; Visit Provider Internal Medicine ==

== ENCOUNTER 2024-04-18 12:15 | Emergency (ER) | payer OTHER, SELFPAY ==
--- NOTE | ~2024-04-18 | XR_ITS ---
EXAMINATION: XR CHEST CLINICAL INFORMATION: near syncopal episode COMPARISON: July 15, 2019 TECHNIQUE: Frontal view of the chest was obtained. FINDINGS: No consolidation pleural effusion or pneumothorax. No hyperinflation. Cardiomediastinal silhouette is normal in size. Osseous structures are intact. Degenerative changes in the acromioclavicular joints. XR/XR chest 1V IMPRESSION: No acute airspace disease. Electronically signed by: Sergei Rodgers MD 04/18/2024 02:12 PM PA
--- NOTE | ~2024-04-18 | CT_ITS ---
EXAMINATION: CT HEAD WITHOUT CONTRAST CLINICAL INFORMATION: near syncopal episode COMPARISON: June 18, 2023. TECHNIQUE: Contiguous axial imaging was performed from the skull base to vertex without intravenous administration of contrast. This CT examination was performed using dose optimization techniques as appropriate, variously including the following: *Automated exposure control *Adjustment of mA and/or kV according to patient size (this includes techniques or standardized protocols for targeted exams where dose is matched to indication/reason for exam; i.e. extremities or head) *Use of iterative reconstruction technique DLP: 877.5 mGy-cm FINDINGS: Bony calvarium is intact. Skull base is intact. No acute intracranial hemorrhage, mass effect, midline shift, hydrocephalus or herniation. Estrada-white matter differentiation is normal. Posterior cranial fossa contents demonstrated no acute intracranial hemorrhage or mass effect. Bilateral few scattered patchy deep periventricular white matter hypodensities. Tympanic cavities and mastoid air cells are aerated. Mucosal thickening in the paranasal sinuses without air-fluid levels. No gross hematoma in the intraconal or extraconal compartments of the orbits. CT/CT head/brain wo IV con IMPRESSION: No acute fracture, bony calvarium. No acute intracranial hemorrhage. Consider small vessel occlusive disease in the correct clinical settings. Electronically signed by: Sergei Rodgers MD 04/18/2024 02:57 PM PA
[2024-04-18 12:26] VITALS: BP 148/82; PULSE 98
[2024-04-18 12:34] VITALS: BP 143/62; PULSE 69; RESP 16; TEMP 36.7; O2SAT 98; BMI 31.6
--- NOTE | 2024-04-18 12:37 | ECG_ITS ---
Test Reason : syncope Blood Pressure : */* mmHG Vent. Rate : 69 BPM Atrial Rate : 69 BPM P-R Int : 180 ms QRS Dur : 94 ms QT Int : 396 ms P-R-T Axes : 11 -17 23 degrees QTcB Int : 424 ms Normal sinus rhythm Cannot rule out Anterior infarct , age undetermined Abnormal ECG When compared with ECG of 28-Jan-2021 11:40, No significant change was found Referred By: Generic ED Physician Electronically Signed By: Temo Cardona
--- NOTE | 2024-04-18 12:58 | MHC.STROKE ---
Notified of potential stroke alert in ED. Met patient in ED upon their arrival. Dr. Babin with the patient and EMS upon my arrival Pt reports that he was across the street at a MD appointment when staff became concerned regarding weakness and potential facial droop. In ED, patient awake, alert and oriented. Initially he said the date was March but quickly corrected himself. No focal neuro deficits noted when examined by physician Pt was able to ambulate off of EMS stretcher. Pt states history of TBI. Denies any changes to his speech. He does report that he had some numbness in his left hand on Thursday while at work but he went into his car to warm up and the numbness went away. No obvious facial droop appreciated. Cleared by ED provider to proceed to assigned bed and have lottery manager at the bedside. Will continue to assist as needed.
--- NOTE | 2024-04-18 13:08 | ED_ITS ---
HPI - General Adult General Chief complaint: Headache Stated complaint: ?STROKE,LKWT 10M,KARLA,R WEAK,-THIN FROM OFFICE Time Seen by Provider: 04/18/24 13:06 Source: patient and EMS Mode of arrival: EMS Limitations: no limitations History of Present Illness ED Provider: Dora Dunn PA-C HPI narrative: Patient is a 63 year old assigned male at with a history of TBI, NSVT, HLD, HTN, and DM presenting to the emergency department today with headaches and a near syncopal episode. Patient states that he as at an appointment across the street when he nearly passed out and had to be helped to the floor. 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 Patient denies any dizziness, lightheadedness, abdominal pain, nausea, vomiting, fever, chills, blurry vision, double vision, loss of vision, chest pain, difficulty breathing, shortness of breath, back pain, night sweats, pain with urination, increased urinary frequency, increased urinary urgency, blood in his urine or stool, syncope, bowel incontinence, bladder incontinence, or any other complaints at this time. Relieving factors: none Exacerbating factors: none Associated symptoms: denies other symptoms Treatments prior to arrival: none Related Data Home Medications ?Medication ?Instructions ?Recorded ?Confirmed metformin 500 mg PO DAILY 07/24/22 03/21/24 Previous Rx's ?Medication ?Instructions ?Recorded aspirin 81 mg tablet,delayed 81 mg PO DAILY #90 tabs 12/15/22 release atorvastatin 80 mg tablet 80 mg PO BEDTIME #90 tabs 03/30/23 ezetimibe 10 mg tablet 10 mg PO DAILY #60 tabs 10/12/23 baclofen 10 mg tablet 10 mg PO BEDTIME #30 tabs 03/21/24 ibuprofen 800 mg tablet 400 mg (1/2 x 800 mg) PO BID #60 03/21/24 tabs pramipexole 0.25 mg tablet 0.25 mg PO BEDTIME #30 tabs 03/21/24 diphenoxylate-atropine 2.5 1 tab PO QID PRN diarrhea #20 tabs 04/15/24 mg-0.025 mg tablet (Lomotil) Allergies Allergy/AdvReac Type Severity Reaction Status Date / Time azithromycin Allergy Unknown rash Verified 04/18/24 12:36 ciprofloxacin [From CIPRO] Allergy Unknown BLISTERS Verified 04/18/24 12:36 penicillin G [PENICILLIN G] Allergy Unknown HIVES Verified 04/18/24 12:36 penicillin V Allergy Unknown anaphylaxis Verified 04/18/24 12:36 Review of Systems 2 Constitutional: Constitutional: Reports no additional constitutional complaints, Denies chills, Denies fever(s), Reports headache(s) and Denies night sweats Eyes: Eyes: Reports no additional eye complaints, Denies blurry vision, Denies change in vision, Denies diplopia, Denies eye discharge, Denies loss of vision and Denies eye pain ENT: Denies dizziness and Reports headache(s) Cardiovascular: Cardiovascular: Reports no additional cardiovascular complaints, Denies chest pain, Denies lightheadedness, Denies Loss of Consciousness and Denies dyspnea Respiratory: Respiratory: Reports no additional respiratory complaints and Denies dyspnea Gastrointestinal: Gastrointestinal: Reports no additional gastrointestinal complaints, Denies abdominal pain, Denies melena, Denies hematochezia, Denies change in bowel habits and Denies change in stool character Genitourinary: Genitourinary: Reports no additional male genitourinary complaints, Denies hematuria, Denies oliguria, Denies difficulty urinating, Denies dysuria, Denies urinary frequency, Denies urinary hesitancy, Denies urinary incontinence and Denies urinary urgency Musculoskeletal: Musculoskeletal: Reports no additional musculoskeletal complaints, Denies numbness and Denies tingling Neurologic: Denies dizziness, Reports headache(s), Denies loss of vision, Denies numbness and Denies tingling Psychiatric: Psychiatric: Reports no additional psychiatric complaints Endocrine: Endocrine: Reports no additional endocrine complaints Hematologic/Lymphatic: Hematologic/Lymphatic: Reports no additional hematologic/lymphatic complaints Allergic/Immunologic: Allergic/Immunologic: Reports no additional allergic/immunologic complaints [facility] Past Medical History Attestation statement: The following information was validated with the patient. Source: old records reviewed and nursing notes reviewed Medical History Cervicalgia Generalized headaches Occasional tremors Depression Anxiety PTSD (post-traumatic stress disorder) TBI (traumatic brain injury) Internal and external bleeding hemorrhoids Diverticulitis Pain in both lower legs Chest pain Surgical History H/O colonoscopy No significant past surgical history Family History Family History Mother No problems noted. Father No problems noted. Brother No problems noted. Brother No problems noted. Brother No problems noted. Social History Social History Housing: Apartment Alcohol intake: current Alcohol intake frequency: holidays/special occasions only Patient Tobacco Use Status: Former Tobacco user Tobacco use type: Cigarette Years Smoked: 5 +/- Smoked in Last 30 Days: No e-Cigarette/Vaping Use: Never Used Second Hand Smoke Exposure: Yes Use of substances other than those prescribed or required for medical reasons: No Advance Directives: No Advance Directives Information Provided: Yes Do you have a plan to hurt others: No Plan service: No Current occupational status: employed Current occupational exposures/hazards: No Cognitive needs: No Hearing needs: No Vision needs: Yes Physical Exam ED Vital Signs: Vital Signs - 24 hr 04/18/24 12:34 04/18/24 16:08 Temperature 98.0 F 98 F Pulse Rate 69 73 Respiratory Rate 16 16 Blood Pressure 143/62 H 133/72 Pulse Oximetry 98 98 Oxygen Delivery Method Room Air BMI result Body Mass Index 31.6 Const General: cooperative, no acute distress, alert and awake Nutritional Appearance: well nourished Orientation/consciousness: patient oriented x3 Limitations: no limitations HENMT Head: Yes normal to inspection and Yes atraumatic Ears: hearing grossly normal bilaterally and external ears normal General nose exam: Normal external nose present, no nasal discharge noted and no epistaxis Face and sinus: Yes normal facial exam, No abrasion and No laceration Mouth: Normal oral and palatal mucosa present, no drooling and no muffled voice Eyes General: appearance normal, both eyes and all related structures Periorbital: periorbital findings normal Eyelids: Yes eyelids normal Conjunctivae: conjunctivae normal Pupils: Equal, round and reactive pupils present EOM: EOMs intact bilaterally Neck Neck: Yes normal visual inspection, Yes full ROM and Yes no lymphadenopathy Chest Chest palpation & inspection: normal inspection of the chest Resp Effort & Inspection: normal respiratory effort and able to speak in complete sentences GI Inspection: Yes normal to inspection Neuro General: patient oriented x3 and moves all extremities Cranial nerves: Yes Equal, round and reactive pupils present Cognition (Neuro): normal cognition Extrem General: Yes normal to inspection, Yes full ROM and Yes capillary refill normal Psych Appearance: grossly normal Mental Status: mental status grossly normal Affect: normal affect Attitude: cooperative Thought process: Normal thought process present Thought content: Normal thought content present Insight: Good insight present (Psych) NIH Stroke Scale Internal: Initial- Upon Arrival Time: 12:15 Level of Consciousness: Alert Level of Consciousness Questions: Answers both questions correctly Level of Consciousness Commands: Performs both tasks correctly Best Gaze: Normal Visual: No visual loss Facial Palsy: Normal Motor Arm (Right): No drift Motor Arm (Left): No drift Motor Leg (Right): No drift Motor Leg (Left): No drift Limb Ataxia: Absent Sensory: Normal Best Language: No aphasia Dysarthia: Normal Extinction and Inattention: No abnormality Score: 0 Medications Administered Discontinued Medications Generic Name Dose Route Start Last Admin Trade Name Freq PRN Reason Stop Dose Admin Acetaminophen 650 mg 04/18/24 13:36 04/18/24 14:04 Acetaminophen 325 Mg Tablet PO 04/18/24 13:37 650 mg ONCE ONE Administration Medical Decision Making Medical Decision Making [facility] Narrative: Patient is a 63 year old assigned male at with a history of TBI, NSVT, HLD, HTN, and DM presenting to the emergency department today with headaches and a near syncopal episode. Patient's physical exam was unremarkable. Patient's blood work was unremarkable. Patient's EKG was unremarkable. Patient's chest x- ray and head CT showed no acute process. I explained my physical exam findings as well as all test results to the patient. I answered all questions asked by the patient. I stressed the importance of the patient taking his medication as directed (either prescribed or as the over the counter packaging recommends). I stressed the importance of the patient following up with his primary care provider. I stressed the importance of the patient returning to the emergency department immediately if his symptoms were to worsen or if he were to develop any dizziness, shortness of breath, difficulty breathing, chest pain, blurry vision, loss of vision, nausea, vomiting, abdominal pain, fever, chills, back pain, or any other complaints. Patient verbalized agreement and understanding with this treatment plan and discharge. Differential Diagnosis Differential Diagnoses: The differential diagnosis associated with the presentation includes Near syncope Anxiety Stress reaction Headache Migraine headache Admission/Observation Consideration of admission/observation: Escalation of care including admission/observation considered Patient would have been admitted to the hospital had his work up had any findings where hospital admission was appropriate and his clinical presentation warranted hospital admission. Lab Data [facility] Lab Attestation statement: I reviewed the patient's lab results. My interpretation of these results are in the [facility] Rationale portion of this note. 04/18/24 13:06 04/18/24 13:06 Labs: Lab Results 04/18/24 04/18/24 04/18/24 Range/Units 12:52 13:06 13:18 WBC 8.5 (4.8-10.8) X10*3/uL RBC 4.97 (4.60-5.80) X10*6/uL Hgb 15.1 (14.0-18.0) g/dl Hct 42.9 (42.0-52.0) % MCV 86.3 (80.0-98.0) fL MCH 30.4 (27.0-33.0) pg MCHC 35.2 (31.0-36.0) g/dl RDW 12.3 (11.0-16.0) % Plt Count 172 (160-400) X10*3/uL MPV 9.8 (9.4-12.4) fL Immature Gran % (Auto) 0.4 (0.0-0.4) % Neut % (Auto) 68.0 (45-73) % Lymph % (Auto) 20.7 (20-40) % [place] % (Auto) 9.1 (2-11) % Eos % (Auto) 1.2 (0-4) % Baso % (Auto) 0.6 (0-2) % Lymph # (Auto) 1.8 (1.2-4.9) X10*3/uL [place] # (Auto) 0.8 (0.1-1.2) X10*3/uL Eos # (Auto) 0.1 (0.0-0.4) X10*3/uL Baso # (Auto) 0.1 (0.0-0.2) X10*3/uL Abs Immat Gran (auto) 0.03 (0.00-0.03) X10*3/uL Absolute Neuts (auto) 5.8 (2.0-8.3) x10*3/uL Absolute Nucleated RBC 0.000 (0.0-0.012) X10*3/uL Nucleated RBC % (auto) 0.0 (0.0-0.2) /100WBC PT 12.0 (10.9-12.4) SEC INR 1.0 (0.9-1.1) Sodium 138 (135-145) mmol/L Potassium 4.3 (3.3-5.1) mmol/L Chloride 105 (96-108) mmol/L Carbon Dioxide 25 (22-29) mmol/L Anion Gap 12 (12-20) BUN 18 H (9-16) mg/dL Creatinine 0.86 (0.5-1.4) mg/dL Estim Creat Clear Calc 105.4 Estimated GFR > 60 POC Glucose 196 H (60-115) mg/dL Random Glucose 211 H (60-115) mg/dL Calcium 8.8 D (8.4-10.2) mg/dL Magnesium 2.2 (1.6-2.6) mg/dL Total Bilirubin 0.5 (0.0-1.0) mg/dL AST 22 (5-37) U/L ALT 20 (0-40) U/L Alkaline Phosphatase 58 (39-117) U/L Troponin I High Sens < 2.7 (<3.5-35.0) ng/L Total Protein 6.8 (6.5-8.0) g/dL Albumin 4.2 (3.5-5.0) g/dL Influenza Type A (PCR) NEGATIVE (Negative) Influenza Type B (PCR) NEGATIVE (Negative) RSV RNA Qual (PCR) NEGATIVE (Negative) SARS-CoV-2 RNA (RT-PCR) NEGATIVE (Negative) Independent Interpretation I performed an independent interpretation of an: EKG, Plain X-Ray and CT Scan Interpretation: My interpretation is in agreement with the radiologist's impression of these imaging studies. L Report Number: [id number]: Total DLP = 883.00 mGy-cm EXAMINATION: CT HEAD WITHOUT CONTRAST CLINICAL INFORMATION: near syncopal episode COMPARISON: June 18, 2023. TECHNIQUE: Contiguous axial imaging was performed from the skull base to vertex without intravenous administration of contrast. This CT examination was performed using dose optimization techniques as appropriate, variously including the following: *Automated exposure control *Adjustment of mA and/or kV according to patient size (this includes techniques or standardized protocols for targeted exams where dose is matched to indication/reason for exam; i.e. extremities or head) *Use of iterative reconstruction technique DLP: 877.5 mGy-cm FINDINGS: Bony calvarium is intact. Skull base is intact. No acute intracranial hemorrhage, mass effect, midline shift, hydrocephalus or herniation. Estrada-white matter differentiation is normal. Posterior cranial fossa contents demonstrated no acute intracranial hemorrhage or mass effect. Bilateral few scattered patchy deep periventricular white matter hypodensities. Tympanic cavities and mastoid air cells are aerated. Mucosal thickening in the paranasal sinuses without air-fluid levels. No gross hematoma in the intraconal or extraconal compartments of the orbits. CT/CT head/brain wo IV con IMPRESSION: No acute fracture, bony calvarium. No acute intracranial hemorrhage. Consider small vessel occlusive disease in the correct clinical settings. Electronically signed by: Sergei Rodgers MD 04/18/2024 02:57 PM EST RP Dictated By: Sergei Olvera MD Signed By: Electronically signed by Sergei Barger MD 04/18/24 1457 EXAMINATION: XR CHEST CLINICAL INFORMATION: near syncopal episode COMPARISON: July 15, 2019 TECHNIQUE: Frontal view of the chest was obtained. FINDINGS: No consolidation pleural effusion or pneumothorax. No hyperinflation. Cardiomediastinal silhouette is normal in size. Osseous structures are intact. Degenerative changes in the acromioclavicular joints. XR/XR chest 1V IMPRESSION: No acute airspace disease. Electronically signed by: Sergei Rodgers MD 04/18/2024 02:12 PM EST RP Dictated By: Sergei Olvera MD Signed By: Electronically signed by Sergei Barger MD 04/18/24 1412 Radiology Impression Discussion of test interpretation with radiology: I have reviewed the radiologist's reading. Independent Historian Clinical information obtained from an independent historian. History obtained from or confirmed by: EMS (EMS provided additional history and confirmed the history provided by the patient.) Chronic Conditions Patient?s care impacted by: Diabetes and Hypertension Discharge Plan Discharge Clinical Impression: Near syncope Patient Disposition: Home, Self-Care Instructions: Near Syncope (ED) Additional Instructions: Follow up with your primary care provider. Return to the emergency department immediately if your symptoms worsen or if you develop any dizziness, shortness of breath, difficulty breathing, chest pain, blurry vision, loss of vision, nausea, vomiting, abdominal pain, fever, chills, back pain, or any other complaints. Prescriptions: No Action aspirin 81 mg tablet,delayed release (DR/EC) 81 mg PO DAILY Qty: 90 3RF ezetimibe 10 mg tablet 10 mg PO DAILY Qty: 60 3RF diphenoxylate-atropine [Lomotil] 2.5-0.025 mg tablet 1 tab PO QID PRN (Reason: diarrhea) Qty: 20 0RF metformin 500 mg PO DAILY atorvastatin 80 mg tablet 80 mg PO BEDTIME Qty: 90 3RF pramipexole 0.25 mg tablet 0.25 mg PO BEDTIME Qty: 30 3RF Rx Instructions: RLS? baclofen 10 mg tablet 10 mg PO BEDTIME Qty: 30 2RF ibuprofen 800 mg tablet 400 mg PO BID Qty: 60 3RF Rx Instructions: knee pain - one tablet as needed for pain Referrals: Juan Copeland MD [Primary Care Provider] - Interventions: ED Discharge Assessment Last Done: 04/18/24 16:08 Discharge Date/Time: 04/18/24 16:09 Print Language: American
[2024-04-18 13:11] LABS: MANUAL DIFF FLAG NO
[2024-04-18 13:12] LABS: Basophils Absolute Auto 0.1 X10*3/uL (0.0-0.2); Basophils Percent Auto 0.6 % (0-2); Eosinophils Absolute Auto 0.1 X10*3/uL (0.0-0.4); Eosinophils Percent Auto 1.2 % (0-4); Hematocrit 42.9 % (42.0-52.0); Hemoglobin 15.1 g/dl (14.0-18.0); Imm Gran Abs Auto 0.03 X10*3/uL (0.00-0.03); Imm Gran Pct Auto 0.4 % (0.0-0.4); Lymphocytes Absolute Auto 1.8 X10*3/uL (1.2-4.9); Lymphocytes Percent Auto 20.7 % (20-40); Mean Corpuscular HGB Conc 35.2 g/dl (31.0-36.0); Mean Corpuscular Hemoglobin 30.4 pg (27.0-33.0); Mean Corpuscular Volume 86.3 fL (80.0-98.0); Mean Platelet Volume 9.8 fL (9.4-12.4); Monocytes Absolute Auto 0.8 X10*3/uL (0.1-1.2); Monocytes Percent Auto 9.1 % (2-11); Neutrophils Absolute Auto 5.8 x10*3/uL (2.0-8.3); Platelet Count 172 X10*3/uL (160-400); Red Blood Count 4.97 X10*6/uL (4.60-5.80); Red Cell Distribution Width 12.3 % (11.0-16.0); White Blood Count 8.5 X10*3/uL (4.8-10.8)
[2024-04-18 13:36] LABS: Alanine Aminotransferase 20 U/L (0-40); Albumin Level 4.2 g/dL (3.5-5.0); Alkaline Phosphatase 58 U/L (39-117); Anion Gap 12 (12-20); Aspartate Amino Transferase 22 U/L (5-37); Bilirubin Total 0.5 mg/dL (0.0-1.0); Blood Urea Nitrogen 18 mg/dL (9-16); Calcium 8.8 mg/dL (8.4-10.2); Carbon Dioxide 25 mmol/L (22-29); Chloride 105 mmol/L (96-108); Creatinine Clr Calc Pharmacy 105.4; Estimated Glomerular Filt Rate > 60; Glucose Random 211 mg/dL (60-115); Magnesium 2.2 mg/dL (1.6-2.6); Potassium 4.3 mmol/L (3.3-5.1); Sodium 138 mmol/L (135-145); Total Protein 6.8 g/dL (6.5-8.0)
[2024-04-18 13:45] LABS: Glucose, Whole Blood 196 mg/dL (60-115)
[2024-04-18 13:45] LABS: Troponin-I High Sensitivity < 2.7 ng/L (<3.5-35.0)
[2024-04-18 14:03] LABS: Influenza A PCR NEGATIVE (Negative); Influenza B PCR NEGATIVE (Negative); Resp Syncy Virus RNA Qual PCR NEGATIVE (Negative); SARS COV2 PCR INHOUSE NEGATIVE (Negative)
[2024-04-18] MEDS: Acetaminophen 325 MG TABLET 650 MG PO (14:04)
--- OUTSIDE RECORDS SUMMARY | 2024-04-18 14:53 | XMS_ITS | Clinical Summary ---
Author Organization [employer] [facility] Address [address] [place] [address] Care Team Providers Care Home Health Clinician Name Role Phone Unavailable Primary Care Provider Unavailabl e Social History Tobacco Use Types Packs/Day Years Used Date Smoking Tobacco: Never Assessed Sex and Gender Information Value Date Recorded Sex Assigned at Not on file Gender Identity Not on file Sexual Orientation Not on file Plan of Treatment Not on file
--- OUTSIDE RECORDS SUMMARY | 2024-04-18 14:53 | XMS_ITS | Clinical Summary ---
[facility] Organization [facility] Address [address] [place] [address] Care Team Providers Care Manager Film Name Role Phone SequeiraTiffany MD Primary Care Provider Surgical History Surgery Date Site/Laterality Comments COLONOSCOPY 06/14/2018 PROCEDURE: HISTORICAL COLONOSCOPY Medical History Medical History Date Comments Diabetes mellitus type 2, uncomplicated (CMS/HCC) 11/03/2018 DX:Diabetes mellitus type 2, uncomplicated (HCC) Fatty liver 11/03/2018 DX:Fatty liver History of traumatic brain injury 11/03/2018 DX:History of traumatic brain injury Hyperlipidemia 11/03/2018 DX:Hyperlipidemi a; COMMENT: Patient declines statin use Renal stones 11/03/2018 DX:Renal stones Tension headache, chronic 11/03/2018 DX:[place] headache, chronic Diverticula of colon 11/03/2018 DX:Divertic joselo of colon Hemorrhoids 11/03/2018 DX:Hemorrhoids Family History Medical History Relation Name Comments Hypertension Father PVD s/p limb am putation, HLD Relation Name Status Comments Father Mother Alive Social History Tobacco Use Types Packs/Day Years Used Date Smoking Tobacco: Former Smokeless Tobacco: Never Alcohol Use Standard Drinks/Week Comments Not Currently 0 (1 standard drink = 0.6 oz pur e alcohol) Sex and Gender Information Value Date Recorded Sex Assigned at Not on file Gender Identity Not on file Sexual Orientation Not on file Obstetrics History Last Filed Vital Signs Vital Sign Reading Time Taken Comments Blood Pressure 116/62 09/20/2021 3:08 PM EDT Pulse 64 09/20/2021 3:08 PM EDT Temperature - - Respiratory Rate - - Oxygen Saturation - - Inhaled Oxygen Concentration - - Weight 103 kg (226 lb 4.8 oz) 09/20/2021 3:08 PM EDT Height 177.8 cm (5' 10 ) 09/20/2021 3:08 PM EDT Body Mass Index 32.47 09/20/2021 3:08 PM EDT Plan of Treatment Health Maintenance Due Date Last Done Comments Diabetes: Annual GFR (Glomer ular Filtration Rate) 1961 Diabetes: Annual Foot Exam 09/03/1971 Diabetes: Annual Retina Eye Exam 09/03/1971 DTaP,Tdap,and Td Vaccines (1 - Tdap) 1980 Hepatitis A Vaccines (1 of 2 - Risk 2-dose series) 1980 Zoster Vaccines (1 of 2) 09/03/2011 Hepatitis B Vaccines (1 of 3 - Risk 3-dose series) 2021 RSV Immunization Patients 60 + Years Old (1 - Risk 60-74 years 1-dose series) 2021 Cholesterol Screening (Lipid Panel) 02/23/2022 Colorectal Cancer Screening: Colonoscopy 02/23/2022 Depression Screening 02/23/2022 HIV Screening 02/23/2022 Hepatitis C Screening 02/23/2022 Social Influencers of Health Screening 02/23/2022 Diabetes: Annual Urine Albumin-Creatinine Ratio (uACR) 02/28/2022 Diabetes: Blood Sugar Contro l Test (HGBA1C) 02/28/2022 COVID-19 Vaccine (2023-2 5 season) 2023 Influenza Vaccine (#1) 2023 HIB Vaccines Aged Out No longer eligi ble based on patient's age to complete this topic HPV Vaccines Aged Out No longer eligi ble based on patient's age to complete this topic IPV Vaccines Aged Out No longer eligi ble based on patient's age to complete this topic MMR Vaccines Aged Out No longer eligi ble based on patient's age to complete this topic Meningococcal ACWY Vaccine Aged Out N o longer eligible based on patient's age to complete this topic Pneumococcal Vaccine: Pediat rics (0 to 5 Years) and At-Risk Patients (6 to 64 Years) Aged Out No longer eligible b ased on patient's age to complete this topic RSV Immunization Patients Un aly 20 months Aged Out No longer eligible b ased on patient's age to complete this topic Varicella Vaccines Aged Out No longer eligible based on patient's age to complete this topic Care Teams Manager Film Relationship Specialty Start Date End Date Tiffany Sequeira MD [address] [place], [place] [address]t Of [facility] ID PCP - General Internal Medicine 05/27/18
[2024-04-18 16:08] VITALS: BP 133/72; PULSE 73; RESP 16; TEMP 36.6; O2SAT 98
== END 2024-04-18 16:09 | disposition home or self-care (01) ==
PROVIDERS: Emergency Provider Emergency Medicine; PCP Internal Medicine
DX: R55 Syncope and collapse (principal); R47.81 Slurred speech; R94.31 Abnormal electrocardiogram [ECG] [EKG]; F43.9 Reaction to severe stress, unspecified; I10 Essential (primary) hypertension; E11.9 Type 2 diabetes mellitus without complications; R51.9 Headache, unspecified; Z79.84 Long term (current) use of oral hypoglycemic drugs; Z03.818 Encounter for observation for suspected exposure to other biological agents ruled out; Z79.899 Other long term (current) drug therapy
CPT/HCPCS: 0241U; 70450; 71045; 80053; 82947; 82948; 83735; 84484; 85025; 85610; 93005; 99284

== ENCOUNTER → 2024-04-18 12:37 | Outpatient (BNV) | payer OTHER, SELFPAY | PROVIDERS: Emergency Provider Emergency Medicine; PCP Internal Medicine; Visit Provider Internal Medicine Cardiovascular Disease | DX: R94.31 Abnormal electrocardiogram [ECG] [EKG] (principal) | CPT/HCPCS: 93010 ==

== ENCOUNTER → 2024-04-18 13:13 | Outpatient (BNV) | payer OTHER, SELFPAY | PROVIDERS: Emergency Provider Emergency Medicine; PCP Internal Medicine; Visit Provider Radiology Diagnostic Radiology | DX: R55 Syncope and collapse (principal) | CPT/HCPCS: 70450; 71045 ==

== ENCOUNTER 2024-05-23 15:31 | Outpatient (AMB) | payer OTHER, SELFPAY ==
--- NOTE | 2024-05-23 15:40 | MHC.OFFVIS ---
Vital Signs 05/23/24 15:41 Height 5 ft 10 in Weight 220 lb 0.341 oz BMI 31.6 BP 130/60 Blood Pressure Location Lt brachial Position Sitting Pulse 60 Pulse Source Pulse Oximeter Intake Visit Reasons: 6 mth f/up Intake Note: 6 mth f/up Fingernail Former Required: No Accompanied by: Self / Same As Patient Allergies azithromycin Allergy (Unknown, Verified 04/18/24 12:36) rash ciprofloxacin [From CIPRO] Allergy (Unknown, Verified 04/18/24 12:36) BLISTERS penicillin G [PENICILLIN G] Allergy (Unknown, Verified 04/18/24 12:36) HIVES penicillin V Allergy (Unknown, Verified 04/18/24 12:36) anaphylaxis Medication List - Last Reconciled 05/23/24 by Temo Cardona MD aspirin 81 mg PO DAILY atorvastatin 80 mg PO BEDTIME baclofen 10 mg PO BEDTIME diphenoxylate-atropine 2.5-0.025 mg (Lomotil) 1 tab PO QID PRN ezetimibe 10 mg PO DAILY ibuprofen 400 mg (1/2 x 800 mg) PO BID [metformin 500 mg PO DAILY] pramipexole 0.25 mg PO BEDTIME HPI Comments Details: 63-year-old gentleman here for follow-up. He is complaining for exertional chest discomfort. He underwent echocardiography which showed normal LVEF without any wall motion abnormalities. He had exercise stress test where he was able to exercise for 6 minutes 29 seconds achieving 7.7 metabolic equivalents. He was changed to Lexiscan for some reason which did not show any definitive perfusion defect. He was referred for coronary CTA which showed mild plaque in the LAD and circumflex artery. He was started on atorvastatin. 03/30/2023: He returns for follow-up. He has not been taking his atorvastatin for few months. He had lab work in November when LDL was 140. Difficult to say whether he was taking medications at that time or not. I have advised him to restart atorvastatin and I am putting him on atorvastatin 80 mg once a day. He is complaining of left-sided facial numbness off and on along with drooping of the left eyelid specially when he is working. He also gets significant fatigue and muscle weakness. 10/05/2023: He is here for follow-up. He has been taking medications regularly. Blood pressure is normal. His last LDL cholesterol was 140 on 12/09/2022. He was advised to repeat it but it appears he has not done any repeat testing. I have advised him to do fasting lipid panel and he plans to do it tomorrow. 05/23/2024: Here for f/u. He has been experiencing chest pains and shortness of breath off and on. He said he also had ?TIA and was in the hospital. [facility] Medical History Cervicalgia Generalized headaches Occasional tremors Depression Anxiety PTSD (post-traumatic stress disorder) TBI (traumatic brain injury) Internal and external bleeding hemorrhoids Diverticulitis Pain in both lower legs Chest pain Surgical History H/O colonoscopy No significant past surgical history Family History Mother No problems noted. Father No problems noted. Brother No problems noted. Brother No problems noted. Brother No problems noted. Social History Housing: Apartment Alcohol intake: current Alcohol intake frequency: holidays/special occasions only Patient Tobacco Use Status: Former Tobacco user Tobacco use type: Cigarette Years Smoked: 5 +/- e-Cigarette/Vaping Use: Never Used Second Hand Smoke Exposure: Yes service: No Current occupational status: employed Current occupational exposures/hazards: No Cognitive needs: No Hearing needs: No Vision needs: Yes Review of Systems Const Denies chills, Denies fatigue, Denies fever(s), Denies frequent falls, Denies weakness, Denies weight gain and Denies weight loss ENT Denies dizziness Card Denies chest pain, Denies leg edema, Denies lightheadedness, Denies palpitations, Denies dyspnea and Denies dyspnea on exertion Resp Denies cough, Denies dyspnea and Denies dyspnea on exertion GI Denies hematochezia Musc Denies abnormal gait, Denies muscle weakness, Denies numbness, Denies radiating pain into limb and Denies tingling Neuro Denies abnormal gait, Denies dizziness, Denies frequent falls, Denies numbness, Denies tingling and Denies weakness Endo Denies fatigue and Denies palpitations Physical Exam Vital Signs: Last Vital Signs Pulse 60 05/23/24 15:41 BP 130/60 05/23/24 15:41 BMI result Body Mass Index 31.6 GENERAL APPEARANCE: in no acute distress, pleasant. NECK: no carotid bruit, no jugular venous distention. SKIN: no suspicious lesions, warm and dry. HEART: no murmurs, regular rate and rhythm. LUNGS: clear to auscultation bilaterally. ABDOMEN: soft, nontender. EXTREMITIES: no edema. PERIPHERAL PULSES: equal. NEUROLOGIC: No gross deficits, AAO X 3 Assessment & Plan Assessment & Plan (1) Chest pain: Code(s): R07.9 - Chest pain, unspecified Category: Medical Qualifiers: Chest pain type: precordial pain Qualified Code(s): R07.2 - Precordial pain (2) Hypertension: Code(s): I10 - Essential (primary) hypertension Category: Medical (3) Hyperlipidemia: Code(s): E78.5 - Hyperlipidemia, unspecified Category: Medical Plan [age] year gentleman here for follow-up. He has background history of hyperlipidemia. He is diabetic and on metformin. LDL target is less than 70. He is on atorvastatin and ezetimibe. He will need a repeat lipid panel. Is complaining of chest discomfort and shortness of breath. We will arrange a stress Mibi for him. Thank you for allowing me to participate in the care of your patient. Please feel free to contact me if you have any questions. Orders: Orders NM cardiolite stress test Today R07.2 - Precordial pain CA stress test Today R07.2 - Precordial pain Lipid Panel Today E78.5 - Hyperlipidemia, unspecified Coding Level of Care Code Est Pt Level 4 (88343) Diagnoses Precordial pain R07.2 Chest pain type: precordial pain Hypertension I10 Hyperlipidemia E78.5
[2024-05-23 15:41] VITALS: BP 130/60; PULSE 60; BMI 31.6
--- OUTSIDE RECORDS SUMMARY | 2024-05-23 17:37 | XMS_ITS | Clinical Summary ---
Author Organization [employer] [facility] Address [address] [place] [address] Care Team Providers Care Confectionery Laboratory Manager Name Role Phone Unavailable Primary Care Provider Unavailabl e Social History Tobacco Use Types Packs/Day Years Used Date Smoking Tobacco: Never Assessed Sex and Gender Information Value Date Recorded Sex Assigned at Not on file Gender Identity Not on file Sexual Orientation Not on file Plan of Treatment Not on file
--- OUTSIDE RECORDS SUMMARY | 2024-05-23 17:37 | XMS_ITS | Patient Health Record ---
Author Organization [facility] Address [address] [place] [address] Care Team Providers Care Oil Winterizer Name Role Phone Erasto Ford, Kyle Primary Care Pro vider Unavailable Jamil Reddy Unavailable [phone] Juan Copeland MD Unavailable Unavailable Reason For Referral No Information Medications Medication SIG (Take, Route, Fr equency, Duration) Notes Start Date End Date Status metFORMIN HCl 500 MG 1 tablet with a beatriz l Orally Once a day for 30 day(s) Active Immunizations Vaccine Route Administration Date Status Comme nts Influenza Unknown 11/14/2021 Administered Problems Problem Type SNOMED Code ICD Code Onset Dates Problem Status W/U Status Risk Notes Problem 97336266 Rectal bleeding (K62.5) Active confirmed Problem Diverticular disease of colon (496051663) Diverticulosis of large intestine without perforation or abscess without bleeding (K57.30) Active confirmed Problem 92780336 Diarrhea, unspecified type (R19.7) Active confirmed Plan Of Treatment Pending Test Test Name Order Date LIVER PROFILE 05/22/2022 CRP 05/22/2022 CBC w DIFF 05/22/2022 SED RATE (ESR) 05/22/2022 CELIAC PANEL #10 05/22/2022 Future Test Test Name Order Date COLONOSCOPY 05/22/2022 Insurance Providers Payer Name Payer Address Payer Phone Subscriber Number Group Number Insured Name Patient Relationship to Insured Coverage Start Date Coverage End Date [place] [employer] [address] [place] [id number] PETER MICHAUD Self - patient is the insured Medical (General) History Medical History History ICD Code NIDDM Denies [place],CVA,Lung disease,renal disease Head trauma, but no surgery--memory issu es PTSD/Depression/Anxiety Describes a negative colonoscopy before age [address] Cardona at [facility] --had been on Metoprolol Surgical History Surgery Date(Month/Year)
--- OUTSIDE RECORDS SUMMARY | 2024-05-23 17:37 | XMS_ITS | Clinical Summary ---
Author Organization [facility] [employer] [facility] Address [address] [place] [address] Care Team Providers Care Laser Beam Cutter Name Role Phone SequeiraTiffany MD Primary Care [...] Recorded Sex Assigned at Not on file Legal Sex Male 9:59 PM EST Gender Identity Not on file Sexual Orientation [...] of 2 - Risk 2-dose series) 1980 Pneumococcal Vaccine: 50+ Ye ars (1 of 1 - PCV) 09/03/2011 Zoster Vaccines (1 of 2) 09/03/2011 Hepatitis [...] patient's age to complete this topic Meningococcal B Vacine Aged Out No lo nger eligible based on patient's age to complete [...] age to complete this topic Care Teams Laser Beam Cutter Relationship Specialty Start Date End Date Tiffany Sequeira [facility] [place] PCP - General Internal Medicine 05/27/18
== END 2024-05-23 16:06 | disposition home or self-care (01) ==
LOC: HO.HCS 15:32
PROVIDERS: PCP Internal Medicine; Visit Provider Internal Medicine Cardiovascular Disease
DX: R07.2 Precordial pain (principal); I10 Essential (primary) hypertension; E78.5 Hyperlipidemia, unspecified
CPT/HCPCS: 99214

== ENCOUNTER → 2024-05-23 15:31 | Outpatient (BNVA) | payer OTHER, SELFPAY | PROVIDERS: PCP Internal Medicine; Visit Provider Internal Medicine Cardiovascular Disease | DX: R07.2 Precordial pain (principal); I10 Essential (primary) hypertension; E78.5 Hyperlipidemia, unspecified | CPT/HCPCS: 99212 ==

== ENCOUNTER → 2024-08-22 08:30 | Outpatient (REF) | payer OTHER, SELFPAY ==
--- NOTE | 2024-08-22 08:35 | CA_ITS ---
Acquisition Time: 2024-08-22 08:41:06 Total Exercise Time: 00:06:31 Test Indications: CP, SOB Medications: SEE H&P Protocol: FERNANDA Max HR: 105 BPM 66% of Pred: 158 BPM Max BP: 140/74 mmHG Max Work Load: 7.8 METS Exercise stress test with exercise 6 mins 31 secs of Fernanda Protocol, achieving 65% MPHR, with reports of 2/10 left sided chest tightness and severe SOB, requesting to stop, with isolated PACs and PVCs, with normotensive repsonse to exercise. Without EKG chnages at the achieved workload. In recovery, breathing returned to baseline and chest pain resolved. Will order Stephanie MIBI for further evaluation. Test reviewed with Dr. Bolivar. Referred By: Temo Cardona Electronically Signed By: Peewee Najera
--- OUTSIDE RECORDS SUMMARY | 2024-08-22 08:39 | XMS_ITS | Patient Health Record ---
Author Organization [facility] Address [address] [place] [address] Care Team Providers Care Psychiatry Teacher Name Role Phone Erasto Ford, Kyle Primary Care Pro vider Unavailable Jamil Reddy Unavailable [phone] Juan Copeland MD Unavailable Unavailable Reason For [...] Problem Status W/U Status Risk Notes Problem 39312713 Rectal bleeding (K62.5) Active confirmed Problem Diverticular disease of colon (413688420) Diverticulosis of large intestine without perforation or abscess without bleeding (K57.30) Active confirmed Problem 35306465 Diarrhea, unspecified type (R19.7) Active confirmed Plan [...] Insured Coverage Start Date Coverage End Date [place] CCN [employer] [address] [place] [id number] PETER MICHAUD Self - patient is the insured Medical (General) History Medical History History ICD Code NIDDM Denies [place],CVA,Lung disease,renal disease Head trauma, but no surgery--memory issu es PTSD/Depression/Anxiety Describes a negative colonoscopy before age [address] Cardona at [facility] [place] for a [place] he art --had been on Metoprolol Surgical History Surgery Date(Month/Year)
== END ==
LOC: HO.CARD 08:30
PROVIDERS: Visit Provider Internal Medicine Cardiovascular Disease
DX: R07.2 Precordial pain (principal)
CPT/HCPCS: 93017

== ENCOUNTER 2024-10-31 12:43 | Outpatient (REF) | payer OTHER, SELFPAY ==
--- OUTSIDE RECORDS SUMMARY | 2024-10-31 13:37 | XMS_ITS | Clinical Summary ---
Author Organization [employer] [facility] Address [address] [place] [address] Care Team Providers Care Tracer Powder Blender Name Role Phone Unavailable Primary Care Provider Unavailabl e Social History Tobacco Use Types Packs/Day Years Used Date Smoking Tobacco: Never Assessed Sex and Gender Information Value Date Recorded Sex Assigned at Not on file Gender Identity Not on file Sexual Orientation Not on file Plan of Treatment Not on file
--- OUTSIDE RECORDS SUMMARY | 2024-10-31 13:37 | XMS_ITS | Clinical Summary ---
Author Organization [facility] Address [address] [place] [address] Care Team Providers Care Longitudinal Float Operator Name Role Phone SequeiraTiffany MD Primary Care Provider Surgical History Surgery Date Site/Laterality Comments COLONOSCOPY 06/14/2018 PROCEDURE: HISTORICAL COLONOSCOPY Medical History Medical History Date Comments Diabetes mellitus type 2, uncomplicated (CMS/HCC V24, CMS/HCC V28) 11/03/2018 DX:Diabetes mellitus type 2, uncomplicated (HCC) [...] - Risk 3-dose series) 2021 RSV Immunization Adult Patie nts (1 - Risk 60-74 years 1-dose series) 2021 Cholesterol Screening (Lipid Panel) 02/23/2022 Colorectal Cancer Screening: Colonoscopy 02/23/2022 HIV Screening 02/23/2022 Hepatitis C Screening 02/23/2022 Social Influencers of Health Screening 02/23/2022 Diabetes: Annual Urine Albumin-Creatinine Ratio (uACR) 02/28/2022 Diabetes: Blood Sugar Contro l Test (HGBA1C) 02/28/2022 COVID-19 Vaccine (2023-2 5 season) 2023 Depression Screening 03/16/2024 Influenza Vaccine (#1) 2024 HIB Vaccines Aged Out No longer eligi [...] age to complete this topic Meningococcal B Vaccine Aged Out No l onger eligible based on patient's age to complete this topic RSV Immunization Patients Un aly 20 months Aged Out No longer eligible b ased on patient's age to complete this topic Varicella Vaccines Aged Out No longer eligible based on patient's age to complete this topic Care Teams Longitudinal Float Operator Relationship Specialty Start Date End Date Tiffany Sequeira MD [address] [place], [place] [address]t [facility] LUIS Gutiérrez PCP - General Internal Medicine 05/27/18
--- OUTSIDE RECORDS SUMMARY | 2024-10-31 13:37 | XMS_ITS | Clinical Summary ---
Author Organization [facility] Address [address] [place] [id number] Phone Care Team Providers Care Electrical Apprentice Name Role Phone Pcp, Unknown Primary Care Provider Unavailabl e Allergies Active Allergy Reactions Criticality Noted Date Comments Amoxicillin Anaphylaxis High 01/10/2019 Medications No known medications Encounters Date Type Department Care Team Description 08/31/2024 8:04 PM EDT - 08/31/2024 9:46 PM EDT Emergency [facility] [address] [place] [address] Discharge Disposition: Left Against Medical Advice from Last 3 Months Social History Tobacco Use Types Packs/Day Years Used Date Smoking Tobacco: Never Assessed Education Answer Date Recorded Are you interested in more education? Not on gordon e 08/31/2024 Are you concerned about learning? Not on file 08/31/2024 No 08/31/2024 No 08/31/2024 Digital Access Answer Date Recorded No 08/31/2024 No 08/31/2024 Reliable internet access at home? Not on file 08/31/2024 Device with a working camera? Not on file Intimate Partner Violence Answer Date R ecorded Are you denied basic needs s uch as food, clothing, or medical care? No 08/31/2024 In the past 12 months have y ou been in a relationship with a person who hurts, threatens, or tries to control you? No 08/31/2024 Are you denied basic needs s uch as food, clothing, or medical care? No 08/31/2024 In the past 12 months have y ou been in a relationship with a person who hurts, threatens, or tries to control you? No 08/31/2024 Sex and Gender Information Value Date Recorded Sex Assigned at Not on file Legal Sex Male 9:45 PM EDT Gender Identity Not on file Sexual Orientation Not on file Last Filed Vital Signs Vital Sign Reading Time Taken Comments Blood Pressure 139/74 08/31/2024 9:45 PM EDT Pulse 80 08/31/2024 9:45 PM EDT Temperature 36.8 C (98.2 F) 08/31/2024 9:45 PM EDT Respiratory Rate 18 08/31/2024 9:45 PM EDT Oxygen Saturation 100% 08/31/2024 9:45 PM EDT Inhaled Oxygen Concentration - - Weight - - Height - - Body Mass Index - - Plan of Treatment Not on file Medical Devices Not on file Procedures Procedure Name Priority Date/Time Associated Diagnosis Comments TROPONIN STAT 08/31/2024 8:45 PM EDT BASIC METABOLIC PANEL STAT 08/31/2024 8:45 PM EDT CBC AND DIFFERENTIAL STAT 08/31/2024 8:45 PM EDT ECG 12-LEAD STAT 08/31/2024 8:19 PM EDT from Last 3 Months Results * CBC and differential (08/31/2024 8:45 PM EDT) WBC 9.98 4.00 - 11.00 K/uL [facility] RBC 4.96 4.50 - 5.90 M/uL [facility] HGB 14.9 13.5 - 17.5 g/dL [facility] HCT 43.3 41.0 - 53.0 % [facility] PLT 210 150 - 450 K/uL [facility] MCV 87.3 80.0 - 100.0 fL [facility] MCH 30.0 27.0 - 31.0 pg [facility] MCHC 34.4 32.0 - 36.0 g/dL [facility] RDW 12.4 11.5 - 14.5 % [facility] MPV 9.7 8.4 - 12.0 fL [facility] NRBC 0.00 0.00 /100 WBCs [facility] ABSOLUTE NRBC 0.00 0.00 K/uL [facility] DIFF METHOD Auto [facility] NEUTS 56.1 48.0 - 76.0 % [facility] LYMPHS 30.4 18.0 - 41.0 % [facility] MONOS 10.3 4.0 - 11.0 % [facility] EOS 2.2 0.0 - 5.0 % [facility] BASOS 0.7 0.0 - 1.5 % [facility] Granulocytes, immature (%) 0.3 0.0 - 0.9 % [facility] ABSOLUTE NEUTS 5.60 1.92 - 7.60 K/uL [facility] ABSOLUTE LYMPHS 3.03 0.72 - 4.10 K/uL [facility] ABSOLUTE MONOS 1.03 0.16 - 1.10 K/uL [facility] ABSOLUTE EOS 0.22 0.00 - 0.50 K/uL [facility] ABSOLUTE BASOS 0.07 0.00 - 0.15 K/uL [facility] Granulocytes, immature 0.03 0.00 - 0.09 K/uL [facility] Blood 08/31/2024 8:45 PM EDT 08/31/2024 8:46 PM EDT us Slim Quevedo PA-C LAB BLOOD ORDERABLES Final R esult [address] [address] * Troponin (08/31/2024 8:45 PM EDT) Pathologist [facility] Troponin-T, HS Gen5 10 0 - 14 ng/L [facility] Blood 08/31/2024 8:45 PM EDT 08/31/2024 8:46 PM EDT Slim PATTONC LAB BLOOD ORDERABLES Final R esult [address] [address] * (ABNORMAL) Basic metabolic panel (08/31/2024 8:45 PM EDT) SODIUM 137 133 - 146 mmol/L [facility] CHLORIDE 101 96 - 108 mmol/L [facility] POTASSIUM 4.2 3.3 - 5.1 mmol/L [facility] CO2 25 21 - 35 mmol/L [facility] BUN 19 6 - 19 mg/dL [facility] CREATININE 1.00 0.5 - 1.5 mg/dL [facility] GLUCOSE 151(H) 70 - 99 mg/dL [facility] CALCIUM 9.2 8.4 - 10.3 mg/dL [facility] EGFR 85 >59 mL/min/1.7 3m2 [facility] Comment:Estimated glomerular filtration rate calculated using the CKD-EPI refit equation. ANION GAP 15 10 - 20 mmol/L [facility] Blood 08/31/2024 8:45 PM EDT 08/31/2024 8:46 PM EDT us Slim Quevedo PA-C LAB BLOOD ORDERABLES Final R esult Performing Organization Address City/[facility]/ZIP Co de Phone Number [address] [address] * ECG 12-LEAD (08/31/2024 8:19 PM EDT) Ventricular Rate EKG/MIN 66 BPM [facility] Atrial Rate 66 BPM [facility] VA Interval 156 ms [facility] QRS Duration 98 ms [facility] QT Interval 402 ms [facility] QTC Interval 421 ms [facility] P [place] 39 degrees [facility] R Wave [place] -13 degrees [facility] T Wave [place] 24 degrees [facility] 08/31/2024 8:19 PM EDT 2024 2:37 PM EDT Narrative [facility] - 2024 2:37 PM EDT Normal sinus rhythm Cannot rule out Anterior infarct , age undetermined Abnormal ECG When compared with ECG of 10-May-2012 18:50, No significant change was found Confirmed by Sukhi Ramírez ([id number]) on 2024 2:37:37 PM Slim Quevedo PA-C ECG ORDERABLES Final Result Performing Organization Address City/[facility]/ZIP Co de Phone Number [facility] from [place] [address] [place] [id number] , [place] [address] [place] [address] [place] [address] [phone] [email or web address] (Work) [address] [place] [address] WORK[employer]ENS[employer] Care Teams Electrical Apprentice Relationship Specialty Start Date End Date Pcp, Unknown PCP - General 08/31/24 Additional Source Comments The information contained in this document represents components of the legal health record. It is not the complete legal health record.[facility]
--- OUTSIDE RECORDS SUMMARY | 2024-10-31 13:37 | XMS_ITS | Patient Health Record ---
Author Organization [facility] Address [address] [place] [address] Care Team Providers Care Wind Field Service Manager Name Role Phone Erasto Ford, Kyle Primary Care Pro vider Unavailable Jamil Reddy Unavailable [phone] Juan Copeland MD Unavailable Unavailable Reason For [...] Problem Status W/U Status Risk Notes Problem 31917518 Rectal bleeding (K62.5) Active confirmed Problem Diverticular disease of colon (216202870) Diverticulosis of large intestine without perforation or abscess without bleeding (K57.30) Active confirmed Problem [id number] Diarrhea, unspecified type (R19.7) Active confirmed Plan [...] Insured Coverage Start Date Coverage End Date [employer] [address] [place] [id number] PETER MICHAUD Self - patient is the insured Medical (General) History Medical History History ICD Code NIDDM Denies [place],CVA,Lung disease,renal disease Head trauma, but no surgery--memory issu es PTSD/Depression/Anxiety Describes a negative colonoscopy before age 51 [address] Cardona at [facility] [place] [facility] for a racing he art --had been on Metoprolol Surgical History Surgery Date(Month/Year)
[2024-10-31 13:50] LABS: Anion Gap 12 (12-20); Blood Urea Nitrogen 17 mg/dL (9-16); Calcium 9.4 mg/dL (8.4-10.2); Carbon Dioxide 27 mmol/L (22-29); Chloride 104 mmol/L (96-108); Cholesterol 202 mg/dL (<200); Estimated Glomerular Filt Rate > 60; HDL Cholesterol 39 mg/dL (>40); Potassium 4.2 mmol/L (3.3-5.1); Sodium 139 mmol/L (135-145); Triglycerides 147 mg/dL (<150)
== END 2024-10-31 12:44 | disposition home or self-care (01) ==
LOC: HO.LAB 12:43
PROVIDERS: Visit Provider Internal Medicine Cardiovascular Disease
DX: E78.5 Hyperlipidemia, unspecified (principal); R07.2 Precordial pain
CPT/HCPCS: 36415; 80048; 80061

== ENCOUNTER 2024-12-21 13:58 | Outpatient (AMB) | payer OTHER, SELFPAY ==
--- NOTE | 2024-12-21 14:02 | A.OFFPC_ITS ---
Vital Signs 12/21/24 14:04 Height 5 ft 10 in Weight 218 lb 6 oz BMI 31.3 BP 120/70 Blood Pressure Location Lt brachial Position Sitting Pulse 68 Pulse Source Pulse Oximeter Temp 97.1 F Temp Source Temporal Artery Scan Pulse Oximetry (%) 97 Oxygen Delivery Method Room Air Intake Visit Reasons: RUBIA DR Copeland Intake Note: Patient is here today for RUBIA from Dr Copeland Conventions Assistant Required: No Global Compensation Director: Not Required per policy Accompanied by: Self / Same As Patient Allergies azithromycin Allergy (Unknown, Verified 12/21/24 14:04) rash ciprofloxacin (From CIPRO) Allergy (Unknown, Verified 12/21/24 14:04) BLISTERS penicillin G (PENICILLIN G) Allergy (Unknown, Verified 12/21/24 14:04) HIVES penicillin V Allergy (Unknown, Verified 12/21/24 14:04) anaphylaxis Medication List - Last Reconciled 12/21/24 by Herman Nj MD aspirin 81 mg PO DAILY atorvastatin 80 mg PO BEDTIME baclofen 10 mg PO BEDTIME diphenoxylate-atropine 2.5-0.025 mg (Lomotil) 1 tab PO QID PRN ezetimibe 10 mg PO DAILY ibuprofen 400 mg (1/2 x 800 mg) PO BID [metformin 500 mg PO DAILY] pramipexole 0.25 mg PO BEDTIME Tobacco use date assessed: 12/21/24 Dental Screening Dental Screen Date: 12/21/24 Did you have a dental visit in the last 12 months?: No Did you have a dental problem in the last 6 months where you did not have access to dental care?: No Was dental information given to patient?: Patient has dentist HPI HPI Comments History of Present Illness Details The patient is a 64-year-old male presenting to [facility]. He reports multiple chronic conditions including heart condition, diverticulitis, traumatic brain injury, vertigo, anxiety, and diabetes mellitus. The patient reports a history of a heart condition, which he believes may have contributed to a previous episode of syncope. He is currently taking aspirin as part of his management plan. The patient has a history of diverticulitis, which causes episodes of diarrhea. He manages this condition with medication, specifically lomotil, which he requests to be refilled regularly. 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 Recently, he experienced a head injury at work, exacerbating his symptoms. The patient experiences vertigo, which he associates with atorvastatin use, leading to inconsistent adherence to this medication. He describes the vertigo as severe enough to cause the sensation of the room spinning. The patient reports anxiety and has a therapist at the NH. He is open to trying medication for anxiety management. The patient has diabetes mellitus, with an A1c of 8.4%. He uses leoncio to manage his blood sugar levels but is willing to try glipizide as prescribed. The patient reports knee pain and headaches, for which he takes ibuprofen as needed. The patient has experienced suicidal ideation, particularly during periods of increased stress related to financial difficulties. He is in contact with a therapist and is considering additional psychiatric support. [facility] Medical History (Updated 12/21/24 @ 15:14 by Herman Nj MD) Cervicalgia Generalized headaches Occasional tremors Depression Anxiety PTSD (post-traumatic stress disorder) TBI (traumatic brain injury) Internal and external bleeding hemorrhoids Diverticulitis Pain in both lower legs Chest pain Surgical History (Updated 12/21/24 @ 14:10 by IMAN Tompkins) H/O colonoscopy Family History Mother No problems noted. Father No problems noted. Brother No problems noted. Brother No problems noted. Brother No problems noted. Social History Housing: Apartment Alcohol intake: current Alcohol intake frequency: holidays/special occasions only Patient Tobacco Use Status: Former Tobacco user Tobacco use type: Cigarette Years Smoked: 5 +/- e-Cigarette/Vaping Use: Never Used Second Hand Smoke Exposure: Yes service: No Current occupational status: employed Current occupational exposures/hazards: No Cognitive needs: No Hearing needs: No Vision needs: Yes Questionnaire PHQ-9 Over the last 2 weeks, how often have you been bothered by any of the following problems? 1. Little interest or pleasure in doing things: not at all 2. Feeling down, depressed, or hopeless: not at all 3. Trouble falling or staying asleep, or sleeping too much: more than half the days 4. Feeling tired or having little energy: more than half the days 5. Poor appetite or overeating: more than half the days 6. Feeling bad about yourself - or that you are a failure or have let yourself or your family down: more than half the days 7. Trouble concentrating on things, such as reading the newspaper or watching television: more than half the days 8. Moving or speaking so slowly that other people could have noticed. Or the opposite - being so fidgety or restless that you have been moving around a lot more than usual: not at all 9. Thoughts that you would be better off or of hurting yourself in some way: not at all Total score: 10 Depression Screening Interpretation: Positive (Lexapro. Psych referral. Already seeing a therapist. ) Depression Screening Follow-up: New Medication prescribed, Community Mental Health Worker F/U and Follow-up Visit Requested Depression Screening Done: Yes 82827 - PHQ-9 Billing: Yes Source: Developed by Drs. Jamil Alatorre, Zoey Redding, Jesse Taylor and colleagues, with an educational shelby from [facility]. Thrive Questionnaire Date Thrive assessed: 12/21/24 I am a: Patient What is your living situation today?: I have a place to live, but I am worried about losing it in the future Within the past 12 months, did the food you bought not last and you didn't have the money to get more?: I choose not to answer this question Within the past 12 months, did you worry whether your food would run out before you got money to buy more?: I choose not to answer this question Do you have trouble paying for medicines?: No Do you have trouble getting transportation to medical appointments?: No Do you have trouble paying your heating and electricity bill?: No Do you have trouble taking care of your child, family member or friend?: No Do you have trouble with day-to-day activities such as bathing, preparing meals, shopping, managing finances, etc.?: I choose not to answer this question Are you currently unemployed and looking for a job?: No Are you interested in more education?: No Please select the resources that you would like help with: Housing/Halfway and Food Currently or been in a relationship where the following occur: I choose not to answer THRIVE Score: 1 AUDIT C Alcohol Use Questionnaire (AUDIT-C) 1. How often do you have a drink containing alcohol?: Monthly or less 2. How many drinks containing alcohol do you have on a typical day when you are drinking?: 1 or 2 3. How often do you have six or more drinks on one occasion?: Never Total Score: 1 SUNITA-7 AMB Questionnaire SUNITA-7 Date SUNITA - 7 assessed: 12/21/24 Feeling nervous, anxious, or on edge: 2 = More than half the days Not being able to stop or control worryin = Not at all Worrying too much about different things: 1 = Several days Trouble relaxin = Several days Being so restless that it is hard to sit still: 1 = Several days Becoming easily annoyed or irritable: 1 = Several days Feeling afraid as if something awful might happen: 2 = More than half the days Total SUNITA-7 score (0-4 normal; 5-9 mild; 10-14 moderate; 15-21 severe): 8 Source: Developed by Drs. Jamil Alatorre, Zoey Redding, Jesse Taylor and colleagues, with an educational shelby from [facility]. Review of Systems Const Details: Positives besides what was mentioned in HPI are in BOLD Constitutional: No Weight Change, No Fever, No Chills, No Night Sweats, No Fatigue, No Malaise ENT/Mouth: No Hearing Changes, No Ear Pain, No Nasal Congestion, No Sinus Pain, No Hoarseness, No sore throat, No Rhinorrhea, No Swallowing Difficulty Eyes: No Eye Pain, No Swelling, No Redness, No Foreign Body, No Discharge, No Vision Changes Cardiovascular: No Chest Pain, No SOB, No PND, No Dyspnea on Exertion, No Orthopnea, No Claudication, No Edema, No Palpitations Respiratory: No Cough, No Sputum, No Wheezing, No Smoke Exposure, No Dyspnea Gastrointestinal: No Nausea, No Vomiting, No Diarrhea, No Constipation, No Pain, No Heartburn, No Anorexia, No Dysphagia, No Hematochezia, No Melena, No Flatulence, No Jaundice Genitourinary: No Dysmenorrhea, No DUB, No Dyspareunia, No Dysuria, No Urinary Frequency, No Hematuria, No Urinary Incontinence, No Urgency, No Flank Pain, No Urinary Flow Changes, No Hesitancy Musculoskeletal: No Arthralgias, No Myalgias, No Joint Swelling, No Joint Stiffness, No Back Pain, No Neck Pain, No Injury History Skin: No Skin Lesions, No Pruritis, No Hair Changes, No Breast/Skin Changes, No Nipple Discharge Neuro: No Weakness, No Numbness, No Paresthesias, No Loss of Consciousness, No Syncope, No Dizziness, No Headache, No Coordination Changes, No Recent Falls Psych: No Anxiety/Panic, No Depression, No Insomnia, No Personality Changes, No Delusions, No Rumination, No SI/HI/AH/VH, No Social Issues, No Memory Changes, No Violence/Abuse Hx., No Eating Concerns Heme/Lymph: No Bruising, No Bleeding, No Transfusions History, No Lymphadenopathy Endocrine: No Polyuria, No Polydipsia, No Temperature Intolerance Physical exam (Primary Care) Vital Signs: Last Vital Signs Temp 97.1 F 12/21/24 14:04 Pulse 68 12/21/24 14:04 BP 120/70 12/21/24 14:04 Pulse Ox 97 12/21/24 14:04 Oxygen Delivery Method Room Air 12/21/24 14:04 BMI result Body Mass Index 31.3 Tobacco/Smoking Status: Tobacco use Status Tobacco use date assessed 12/21/24 12/21/24 14:09 Patient Tobacco Use Status Former Tobacco user 12/21/24 14:09 Tobacco use type Cigarette 12/21/24 14:09 e-Cigarette/Vaping Use Never Used 12/21/24 14:09 PHQ-9: PHQ-9 Score PHQ-9: Total score 10 12/21/24 14:24 Depression Screening Interpretation: Positive (Lexapro. Psych referral. Already seeing a therapist. ) Depression Screening Follow-up: New Medication prescribed, Community Mental Health Worker F/U and Follow-up Visit Requested Thrive Assessment: Date of Thrive Assessment Date Thrive assessed 12/21/24 12/21/24 14:09 Currently or been in a relationship where the following occur: I choose not to answer Const Other: Pertinent findings are in BOLD GENERAL APPEARANCE NAD, activity normal for age, well developed/ well nourished, no cyanosis, pallor, or diaphoresis. EYES lids/conjunctiva normal. EARS/NOSE/THROAT Mucous membranes moist, nares normal, lips/teeth normal uvula midline without oral pharyngeal erythema, ex udate or swelling TMs normal bilaterally. No lymphangitis/lymphedema. HEAD/NECK normocephalic atraumatic, no facial trauma, neck is supple. RESPIRATORY respiratory effort normal, speaks in full sentences, no tripod position, no accessory muscle use. Lungs clear to auscultation without rhonchi, wheezes, rales CARDIAC Regular rate and rhythm, no edema. ABDOMINAL Soft, ND/NT. No evidence of fluid wave. No pulsatile masses on exam, rebound tenderness, Mccain sign or pain over Mcburney's point. MUSCLES/EXTREMITIES No abnormal range of motion, no swelling. SKIN Warm, pink and dry. No rashes, dermatoses, petechiae or lesions. NEUROLOGICAL Speech is clear and appropriate. Normal level of consciousness. Gait and coordination are normal. 5/5 strength in all extremities. PSYCH Normal mood and affect. Judgement/competence is appropriate Office Procedures Flu Questionnaire Does the patient have a severe egg allergy?: No Does the patient have severe life threatening allergies?: No Does the patient have a fever or illness today?: No Has the patient ever had Guillain-Dodson Syndrome?: No Has the patient ever had any past reaction to a flu shot?: No Results AMB Hemoglobin A1c AMB Hemoglobin A1c 8.4 % Last Edit by IMAN Tompkins on 12/21/24 14:23 Immunizations Fluarix [id number] (PF) 45 mcg (15 mcg x 3)/0.5 mL IM syringe Performing Provider: Herman Nj MD [place] [facility] [place] [facility] Administered by: Ana Hassan LPN on 12/21/24 14:51 Dose Route Admin Location Dispensed Lot Number Expiration Date [facility] Hand Cutter 0.5 mL IM Right Deltoid 0.5 mL [id number] 09/12/25 [id number] [employer] VIS Given Date VIS Provided VIS Publication Date 12/21/24 Single Vaccine 24 Eligibility Eligibility Date Funding Source Not [facility] Eligible 12/21/24 Private Results Reviewed Results Reviewed: Laboratory Last Values Hgb A1c (Clinic) 8.4 % (4.0-6.0) H 12/21/24 14:11 Coding Level of Care Code Est Pt Prev Care 40-64y(45229) Diagnoses Healthcare maintenance Z00.00 Diabetes mellitus with coincident hypertension E11.9; I10 MDD (major depressive disorder) F32.9 Hyperlipidemia E78.5 Diverticulitis K57.92 Tobacco use disorder F17.200 Knee pain M25.569 Vertigo R42 Additional Codes PHQ-9 - 40048 - PHQ-9 Billing: Yes ([id number]) Time Spent (min) 30 Assessment & Plan Assessment & Plan (1) Healthcare maintenance: Code(s): Z00.00 - Encounter for general adult medical examination without abnormal findings Category: Medical Plan: CBC, CMP, Lipid panel, A1C, TSH w T4, vit D. Next visit. Shingles 2 doses when >50 yo. [facility] them at the [facility] COVID: two doses. Declined. Pneumococcal: 19-64. [facility] Flu vaccine: Today. Colonoscopy: 45-75. today ordered. AAA: 65 -75. Ordered[address] CT lun - 80. NI. PSA: 50 -70 every two years. HIV: Declined. HBV: Declined. HCV: Declined. (2) Diabetes mellitus with coincident hypertension: Code(s): E11.9 - Type 2 diabetes mellitus without complications; I10 - Essential (primary) hypertension Category: Medical Plan: Started Glipizide. Podiatry referral placed. Patient sees ophthalmology and I asked him to schedule an appointment with them for annual eye exam. (3) MDD (major depressive disorder): Code(s): F32.9 - Major depressive disorder, single episode, unspecified Category: Medical Plan: - Start Lexapro for anxiety management. - Psychiatry referral. - Nurse navigator referral. - [facility] therapist at the [facility] - F-U in 3 months. - Reports SI but no plan to do it at the moment. (4) Hyperlipidemia: Code(s): E78.5 - Hyperlipidemia, unspecified Category: Medical Plan: Patient did not tolerate atorvastatin in the past. Causes him vertigo. Started low dose of simvastatin. Patient was not taking Ezetemibe so it was discontinued. (5) Diverticulitis: Code(s): K57.92 - Diverticulitis of intestine, part unspecified, without perforation or abscess without bleeding Category: Medical Plan: Continue Lomotil. (6) Tobacco use disorder: Code(s): F17.200 - Nicotine dependence, unspecified, uncomplicated Category: Medical Plan: AAA ordered. Patient quit a long time ago. (7) Knee pain: Code(s): M25.569 - Pain in unspecified knee Category: Medical Plan: Continue Ibuprofen. (8) Vertigo: Code(s): R42 - Dizziness and giddiness Category: Medical Plan: Start Meclizine PRN. Plan During the visit, I discussed the management of the patient's multiple chronic conditions, including the continuation of aspirin for heart condition and the prescription of lomotil for diverticulitis. We addressed the patient's vertigo, likely related to atorvastatin, and decided to prescribe meclizine for symptomatic relief. For anxiety, Lexapro was recommended, and the patient was open to trying this medication. We discussed the patient's diabetes management, with a prescription for glipizide to improve glycemic control. The patient was advised to continue ibuprofen for knee pain and headaches as needed. Given the patient's history of suicidal ideation, ongoing therapy at the NH was encouraged, and a psychiatric consultation was considered. Orders: Orders AMB Hemoglobin A1c Today E11.9 - Type 2 diabetes mellitus without complications, I10 - Essential (primary) hypertension Influenza [id number] Immunization Today Z23 - Encounter for immunization US abdominal aortic aneurysm Today F17.200 - Nicotine dependence, unspecified, uncomplicated Referrals Open Access Screening Colonoscopy Referral Z12.11 - Encounter for screening for malignant neoplasm of colon, Z12.12 - Encounter for screening for malignant neoplasm of rectum Nurse Navigator Referral F32.9 - Major depressive disorder, single episode, unspecified Podiatry Referral E11.9 - Type 2 diabetes mellitus without complications, I10 - Essential (primary) hypertension Psychiatry Referral F32.9 - Major depressive disorder, single episode, unspecified Medications: New escitalopram oxalate (Lexapro) 10 mg PO DAILY 90 tabs 1RF simvastatin 40 mg PO DAILY 90 tabs 3RF meclizine 25 mg PO BID PRN 30 tabs 3RF dizziness glipizide 5 mg PO DAILY 90 tabs 3RF Refilled diphenoxylate-atropine 2.5-0.025 mg (Lomotil) 1 tab PO QID PRN 20 tabs 0RF diarrhea ibuprofen knee pain - one tablet as needed for pain 400 mg (1/2 x 800 mg) PO BID 60 tabs 3RF ibuprofen knee pain - one tablet as needed for pain 400 mg (1/2 x 800 mg) PO BID 60 tabs 3RF aspirin 81 mg PO DAILY 90 tabs 3RF R07.2 - Precordial pain Discontinued ezetimibe Discontinued Reason: Patient no longer taking 10 mg PO DAILY 60 tabs 3RF E78.5 - Hyperlipidemia, unspecified pramipexole RLS? Discontinued Reason: Patient no longer taking 0.25 mg PO BEDTIME 30 tabs 3RF
[2024-12-21 14:04] VITALS: BP 120/70; PULSE 68; TEMP 36.2; O2SAT 97; BMI 31.3
== END 2024-12-21 14:51 | disposition home or self-care (01) ==
PROVIDERS: PCP Internal Medicine; Visit Provider Internal Medicine
DX: Z00.00 Encounter for general adult medical examination without abnormal findings (principal); E11.9 Type 2 diabetes mellitus without complications; I10 Essential (primary) hypertension; F32.9 Major depressive disorder, single episode, unspecified; E78.5 Hyperlipidemia, unspecified; K57.92 Diverticulitis of intestine, part unspecified, without perforation or abscess without bleeding; F17.200 Nicotine dependence, unspecified, uncomplicated; M25.569 Pain in unspecified knee; R42 Dizziness and giddiness; Z23 Encounter for immunization

== ENCOUNTER → 2024-12-21 13:58 | Outpatient (BNVA) | payer OTHER, SELFPAY | PROVIDERS: PCP Internal Medicine; Visit Provider Internal Medicine | DX: Z00.00 Encounter for general adult medical examination without abnormal findings (principal); E11.9 Type 2 diabetes mellitus without complications; I10 Essential (primary) hypertension; F32.9 Major depressive disorder, single episode, unspecified; E78.5 Hyperlipidemia, unspecified; K57.92 Diverticulitis of intestine, part unspecified, without perforation or abscess without bleeding; F17.200 Nicotine dependence, unspecified, uncomplicated; M25.569 Pain in unspecified knee; R42 Dizziness and giddiness; Z23 Encounter for immunization | CPT/HCPCS: 83036; 90471; 90656; 96127; 99396 ==

== ENCOUNTER 2025-01-02 14:02 | Outpatient (AMB) | payer OTHER, SELFPAY ==
--- NOTE | 2025-01-02 14:04 | MHC.OFFVIS ---
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 Allergies azithromycin Allergy (Unknown, Verified 01/02/25 14:07) rash ciprofloxacin (From CIPRO) Allergy (Unknown, Verified 01/02/25 14:07) BLISTERS penicillin G (PENICILLIN G) Allergy (Unknown, Verified 01/02/25 14:07) HIVES penicillin V Allergy (Unknown, Verified 01/02/25 14:07) anaphylaxis Medication List - Last Reconciled 01/02/25 by Haley Mendoza, MEDICAL PARASITOLOGIST-C albuterol sulfate 90 mcg/actuation (Ventolin HFA) inhalation aspirin 81 mg PO DAILY baclofen 10 mg PO BEDTIME diphenoxylate-atropine 2.5-0.025 mg (Lomotil) 1 tab PO QID PRN escitalopram oxalate (Lexapro) 10 mg PO DAILY glipizide 5 mg PO DAILY ibuprofen 400 mg (1/2 x 800 mg) PO BID meclizine 25 mg PO BID PRN [metformin 500 mg PO DAILY] simvastatin 40 mg PO DAILY HPI HPI r/s-f/up-CTA 11/02: Details: Shayne is a 64-year-old male past medical history of hypertension, hyperlipidemia, mild nonobstructive coronary artery disease who recently reported chest discomfort. He underwent an exercise stress test then CTA of the coronary arteries and now presents for follow-up. Today he reports that he does get random discomfort in his chest. He is not clearly noticing chest discomfort with exertion but does admit to shortness of breath with exertion. He has been trying to increase his physical activity more recently. No PND, orthopnea or edema. No concerning heart palpitations, lightheadedness, presyncope, syncope. Taking meds as directed. [facility]LY [facility] Medical History Cervicalgia Generalized headaches Occasional tremors Depression Anxiety PTSD (post-traumatic stress disorder) TBI (traumatic brain injury) Internal and external bleeding hemorrhoids Diverticulitis Pain in both lower legs Chest pain Surgical History H/O colonoscopy Family History Mother No problems noted. Father No problems noted. Brother No problems noted. Brother No problems noted. Brother No problems noted. Social History Housing: Apartment Alcohol intake: current Alcohol intake frequency: holidays/special occasions only Patient Tobacco Use Status: Former Tobacco user Tobacco use type: Cigarette Years Smoked: 5 +/- e-Cigarette/Vaping Use: Never Used Second Hand Smoke Exposure: Yes service: No Current occupational status: employed Current occupational exposures/hazards: No Cognitive needs: No Hearing needs: No Vision needs: Yes Review of Systems Const All systems reviewed & are unremarkable except as noted in HPI and below ENT Denies dizziness Card Denies chest pain, Denies chest pain at rest, Denies chest pain with activity, Denies rapid heart rate, Denies pedal edema, Denies edema, Denies leg edema, Denies lightheadedness, Denies palpitations, Denies dyspnea, Reports dyspnea on exertion and Denies orthopnea Resp Denies cough, Denies dyspnea and Reports dyspnea on exertion GI Denies hematochezia and Denies change in stool character Musc Denies abnormal gait, Denies limited range of motion, Denies muscle cramps, Denies muscle weakness, Denies numbness, Denies radiating pain into limb, Denies stiffness and Denies tingling Neuro Denies abnormal gait, Denies dizziness, Denies numbness and Denies tingling Endo Denies palpitations Physical Exam Vital Signs: Last Vital Signs Pulse 79 01/02/25 14:05 BP 100/72 01/02/25 14:05 BMI result Body Mass Index 31.4 Const General: cooperative, healthy appearing, comfortable and no acute distress Orientation/consciousness: patient oriented x3 Neck Neck: Yes normal visual inspection and Yes no JVD Resp Effort & Inspection: normal respiratory effort Auscultation: clear to auscultation bilaterally, no rales, no rhonchi and no wheezes Cardio Rate: regular rate Rhythm: regular rhythm Heart sounds: S1 normal heart sound present, S2 normal heart sound present, no gallops, no murmurs and no rubs Neuro General: patient oriented x3 Extrem General: Yes normal to inspection, No no pedal edema and No calf tenderness Psych Appearance: grossly normal Mental Status: mental status grossly normal Speech and movement: Normal speech and movement present Assessment & Plan Assessment & Plan (1) Chest pain: Comment: CTA of the coronaries 11/02/2024 left main less than 25% stenosis, proximal LAD 25-50%, mid LAD less than 25%, distal LAD 25-50% stenosis, D2 25% stenosis, left circumflex less than 25% stenosis, ramus mid 50% stenosis, proximal RCA 25-49% stenosis. Code(s): R07.9 - Chest pain, unspecified Category: Medical Qualifiers: Chest pain type: precordial pain Qualified Code(s): R07.2 - Precordial pain Plan: Reports of chest discomfort which occurs randomly and shortness of breath with exertion in patient with known mild nonobstructive CAD. Cardiac risk factors of hypertension, hyperlipidemia. He had exercise stress test 08/22/2024 with exercise 6.5 minutes achieving 65% MPHR with chest discomfort and shortness of breath, no EKG change. CTA of the coronary arteries done 11/02/2024 showing mild to at most moderate multivessel CAD, ascending aorta 4.1 cm. Details of coronary CTA reviewed with him. The importance of risk factor modification reviewed. Continue aspirin indefinitely. Continue simvastatin with ideal LDL goal less than 70. Signs and symptoms of angina reviewed. Increase activity as tolerated. (2) Coronary artery disease: Comment: CTA of the coronaries 11/02/2024 left main less than 25% stenosis, proximal LAD 25-50%, mid LAD less than 25%, distal LAD 25-50% stenosis, D2 25% stenosis, left circumflex less than 25% stenosis, ramus mid 50% stenosis, proximal RCA 25-49% stenosis. Code(s): I25.10 - Atherosclerotic heart disease of [place] coronary artery without angina pectoris Category: Medical Plan: As above (3) Hypertension: Code(s): I10 - Essential (primary) hypertension Category: Medical Plan: Blood pressure goal less than 130/80. Well controlled at this time. He is not on antihypertensive agents currently. (4) Hyperlipidemia: Code(s): E78.5 - Hyperlipidemia, unspecified Category: Medical Plan: [place] LDL goal less than 70, closer to 55 if able. Labs done 10/31/2024 showed LDL 134. He tells me he was on atorvastatin which was stopped and he was changed to simvastatin due to concern for side effects. He has not started simvastatin as of yet. The need for good cholesterol control reviewed. Instructed him to start simvastatin and plan a recheck of fasting lipids in 2 months. If he is statin intolerant then recommend use of PCSK9 inhibitor. Plan I discussed with the patient the presence of coronary artery disease and the importance of managing cholesterol levels to prevent progression. We reviewed the use of simvastatin and the potential for alternative treatments if adverse effects occur. The patient was advised to remain active and report any new symptoms, with a follow-up scheduled in six months or sooner if needed. Patient Instructions: - Take daily aspirin as prescribed. - Start simvastatin and monitor for any side effects. - Stay active and report any new or worsening symptoms. - Follow up in six months or sooner if symptoms develop. Patient was informed and verbally consented to the use of an ambient scribe for clinic note documentation during this visit. Visit time spent on chart review, interview, assessment, orders, documentation. Coding Level of Care Code Est Pt Level 4 (85690) Complex EM visit Add On G2211 Diagnoses Precordial pain R07.2 Chest pain type: precordial pain Coronary artery disease I25.10 Hypertension I10 Hyperlipidemia E78.5 Time Spent (min) 28
[2025-01-02 14:05] VITALS: BP 100/72; PULSE 79; BMI 31.4
== END 2025-01-02 14:41 | disposition home or self-care (01) ==
LOC: HO.HCS 14:02
PROVIDERS: PCP Internal Medicine; Visit Provider Nurse Practitioner Family
DX: R07.2 Precordial pain (principal); I25.10 Atherosclerotic heart disease of native coronary artery without angina pectoris; I10 Essential (primary) hypertension; E78.5 Hyperlipidemia, unspecified
CPT/HCPCS: 99214

== ENCOUNTER → 2025-01-02 14:02 | Outpatient (BNVA) | payer OTHER, SELFPAY | PROVIDERS: PCP Internal Medicine; Visit Provider Nurse Practitioner Family | DX: R07.2 Precordial pain (principal); I10 Essential (primary) hypertension; I25.10 Atherosclerotic heart disease of native coronary artery without angina pectoris; E78.5 Hyperlipidemia, unspecified | CPT/HCPCS: 99212 ==